=== PATIENT | female | born 1965 | race Caucasian/White ===

== ENCOUNTER 2016-06-28 07:58 | Day surgery (SDC) | payer MEDICARE, OTHER ==
[2016-06-26 13:38] VITALS: BMI 35.0
[~2016-06-28 07:58] MED LIST: DEXAMETHASONE SOD PHOSPHATE 10 MG/ML 1 ML VIAL IV ONE; HEPARIN SODIUM,PORCINE 5,000 UNIT/ML 1 ML VIAL SQ ONE; LACTATED RINGERS 1,000 ML IV SCH; ONDANSETRON 4 MG/2 ML VIAL IVP ONE; Pre Op ABX Message 1 EACH MISC MISCELLANE ONE
--- NOTE | 2016-06-28 08:09 | P.GSHP ---
History of Present Illness H&P Date: 06/28/16 Chief Complaint: Abnormal left mammogram This a 50-year-old female for from Dr. Ed Martinez. Patient recent mammography. She is found to have suspicious constipation left breast. She presents today for left breast needle localized biopsy. - Constitutional Constitutional: Reports as per HPI Past Medical History Past Medical History: COPD, GERD/Reflux, Hypertension Additional Past Medical History / Comment(s): COPD (NO INHALERS). ABN. MAMMOGRAM History of Any Multi-Drug Resistant Organisms: None Reported Past Surgical History: Hysterectomy Additional Past Surgical History / Comment(s): COLONOSCOPY Past Anesthesia/Blood Transfusion Reactions: No Reported Reaction Past Psychological History: No Psychological Hx Reported Smoking Status: Former smoker Past Alcohol Use History: None Reported Additional Past Alcohol Use History / Comment(s): QUIT 2014. SMOKED 1 & 1/2 PPD FOR 10 YEARS. Past Drug Use History: None Reported - Past Family History Father Family Medical History: Cancer, Deep Vein Thrombosis (DVT) Additional Family Medical History / Comment(s): LUNG CANCER Mother Family Medical History: Deep Vein Thrombosis (DVT) Sister(s) Family Medical History: Pulmonary Embolus Medications and Allergies Home Medications Medication Instructions Recorded Confirmed Type Metoprolol Tartrate [Lopressor] 50 mg PO DAILY 04/05/14 06/26/16 History Ibuprofen [Motrin] 200 - 400 mg PO Q6HR PRN 07/07/15 06/26/16 History Ranitidine HCl [Zantac] 150 mg PO BID PRN 07/07/15 06/26/16 History Allergies Allergy/AdvReac Type Severity Reaction Status Date / Time No Known Allergies Allergy Verified 06/26/16 13:34 Surgical - Exam - General well developed, no distress - Eyes PERRL - ENT normal pinna - Neck no masses - Respiratory normal expansion - Cardiovascular Rhythm: regular - Abdomen Abdomen: soft, non tender Breasts exam is within normal limits Assessment and Plan Plan: Abnormal left mammogram. We'll perform left breast biopsy with needle localization.
[2016-06-28] MEDS ORDERED: LIDOCAINE 1% 20 ML VIAL (10MG/ML) FOR IV START INTRADERMA ONE (09:00)
[2016-06-28] MEDS ORDERED: ALPRAZolam 0.5 MG TAB PO ONE (09:10)
[2016-06-28] MEDS ORDERED: LIDOCAINE 1% INJ 10MG/ML (20 ML MDV) SQ ONE ×2 (09:55→10:10)
[2016-06-28] MEDS ORDERED: SODIUM BICARB 4% 5 ML VIAL (0.48 MEQ/ML) MISCELLANE ONE ×2 (09:55→10:10)
[2016-06-28] MEDS ORDERED: MIDAZOLAM 2 MG/2 ML VIAL IV ONE (11:06)
[2016-06-28] MEDS ORDERED: LABETALOL 5 MG/ML VIAL MDV ONE (11:24)
[2016-06-28] MEDS ORDERED: SUCCINYLCHOLINE CHLORIDE 100 MG/5 ML SYR IV ONE (11:24)
[2016-06-28] MEDS ORDERED: PROPOFOL 10 MG/ML 20 ML VIAL IV ONE (11:24)
[2016-06-28] MEDS ORDERED: MIDAZOLAM 2 MG/2 ML VIAL ONE (11:24)
[2016-06-28] MEDS ORDERED: fentaNYL (PF) 50 MCG/ML 2 ML AMP ONE (11:24)
[2016-06-28] MEDS ORDERED: LIDOCAINE 1% INJ 10MG/ML (20 ML MDV) ONE (11:24)
[2016-06-28] MEDS ORDERED: BUPIVACAIN-EPI 0.25%-1:200,000 30 ML VIAL SQ ONE (11:54)
[2016-06-28] MEDS ORDERED: SODIUM CHLORIDE 0.9% 50 ML with ceFAZolin 2,000 MG IV ONE ×2 (11:57)
[2016-06-28] MEDS ORDERED: LACTATED RINGERS 1,000 ML IV ONE (12:18)
--- NOTE | 2016-06-28 12:23 | P.OP ---
Date of Procedure: 06/28/16 Preoperative Diagnosis: Abnormal left mammogram Postoperative Diagnosis: Defer to pathology Procedure(s) Performed: Left breast biopsy with ultrasound-guided needle localization Anesthesia: DIVYAA Surgeon: Cesar Sheridan Estimated Blood Loss (ml): 5 Pathology: other (Left breast biopsy) Condition: stable Disposition: PACU Description of Procedure: The patient's placed on the operative table in supine position. She received general anesthesia. Her left breast was prepped and draped usual fashion. The wire was positioned at the 4 o'clock position near the inframammary crease. A skin incision was made at the wire site and then using sharp dissection electrocautery and the Harmonic scissors a core tissue around the wire was removed. The bellies hemostasis. The skin was closed interrupted 3-0 Monocryl suture. Dermabond was applied. The specimen was sent to mammography and the lesion was confirmed within the specimen. Patient top procedure well and recovered so condition.
[2016-06-28 12:58] VITALS: TEMP 97
[2016-06-28] MEDS: HYDROmorphone 1 MG/ML 1 ML SYRINGE IVP PRN ×2 (13:00→13:19)
[2016-06-28 13:05] VITALS: RESP 16
--- NOTE | 2016-06-28 13:57 | MM ---
EXAMINATION TYPE: MG pre op needle loc LT DATE OF EXAM: 06/28/2016 11:04 AM COMPARISON: NONE CLINICAL HISTORY: Microcalcifications left breast TECHNIQUE: Needle localization with wire placement and surgical excision of area of concern in the left breast. FINDINGS: The procedure of needle localization with wire placement and than surgical excision was explained to the patient. Benefits, alternatives, and risks were discussed. An informed consent was then obtained. The overlying skin was prepped and draped in usual sterile fashion. Lidocaine buffered with bicarbonate was used as anesthetic into the skin and subcutaneous tissue up to the level of area of concern. The shortest pathway for procedure was chosen initially from below. Given far posterior positioning and patient body habitus the calcifications were not visible utilizing this approach despite multiple attempts. Multiple attempts were then made at a lateral approach with the calcifications being near the chest wall and far posterior. Lateral approach proved successful is a 9 cm needle was placed into the region followed by deployment of guidewire. Subsequent 90 degrees mammogram show the needle to be in satisfactory position relative to the targeted area. At this point, wire was placed and the needle was withdrawn. The wire was fixed to patient's skin. Images were marked for surgeon. The patient tolerated the procedure well without any immediate complication. The patient was kept in the radiology department for short stay after the procedure and then taken to surgery for surgical excision. Targeted calcifications and wire are identified in specimen mammogram. The patient was kept in hospital for short stay after the procedure and then discharged home in stable condition. IMPRESSION: Successful, uncomplicated needle localization with wire placement and surgical excision of suspicious group of calcifications in the left breast, full pathology results to follow. Pathology Results: Benign BREAST, LEFT, IMAGE GUIDED LOCALIZATION AND RESECTION: FIBROCYSTIC CHANGE ( STROMAL FIBROSIS, CYST FORMATION, APOCRINE METAPLASIA, ADENOSIS, COLUMNAR CELL CHANGE AND DUCT HYPERPLASIA). Recommendation Follow up left breast mammogram in 6 months. HESHAM
[2016-06-28 14:24] VITALS: BP 133/71; PULSE 69
--- NOTE | 2016-07-06 11:13 | MM ---
MG Surgical Specimen LT EXAMINATION TYPE: MG pre op needle loc LT DATE OF EXAM: 06/28/2016 11:04 AM COMPARISON: NONE CLINICAL HISTORY: Microcalcifications left breast TECHNIQUE: Needle localization with wire placement and surgical excision of area of concern in the left breast. FINDINGS: The procedure of needle localization with wire placement and than surgical excision was explained to the patient. Benefits, alternatives, and risks were discussed. An informed consent was then obtained. The overlying skin was prepped and draped in usual sterile fashion. Lidocaine buffered with bicarbonate was used as anesthetic into the skin and subcutaneous tissue up to the level of area of concern. The shortest pathway for procedure was chosen initially from below. Given far posterior positioning and patient body habitus the calcifications were not visible utilizing this approach despite multiple attempts. Multiple attempts were then made at a lateral approach with the calcifications being near the chest wall and far posterior. Lateral approach proved successful is a 9 cm needle was placed into the region followed by deployment of guidewire. Subsequent 90 degrees mammogram show the needle to be in satisfactory position relative to the targeted area. At this point, wire was placed and the needle was withdrawn. The wire was fixed to patient's skin. Images were marked for surgeon. The patient tolerated the procedure well without any immediate complication. The patient was kept in the radiology department for short stay after the procedure and then taken to surgery for surgical excision. Targeted calcifications and wire are identified in specimen mammogram. The patient was kept in hospital for short stay after the procedure and then discharged home in stable condition. IMPRESSION: Successful, uncomplicated needle localization with wire placement and surgical excision of suspicious group of calcifications in the left breast, full pathology results to follow. RECOMMENDATION: Follow-up diagnostic mammogram of the left breast in 6 months. HESHAM
== END 2016-06-28 14:38 | disposition home or self-care (01) ==
LOC: OR 07:58
PROVIDERS: ATTEND Surgery
DX: N60.12 Diffuse cystic mastopathy of left breast (principal); N60.82 Other benign mammary dysplasias of left breast; N60.22 Fibroadenosis of left breast; N60.92 Unspecified benign mammary dysplasia of left breast; R92.8 Other abnormal and inconclusive findings on diagnostic imaging of breast; R92.0 Mammographic microcalcification found on diagnostic imaging of breast; R92.1 Mammographic calcification found on diagnostic imaging of breast; K21.9 Gastro-esophageal reflux disease without esophagitis; I10 Essential (primary) hypertension; J44.9 Chronic obstructive pulmonary disease, unspecified; Z79.1 Long term (current) use of non-steroidal anti-inflammatories (NSAID); Z79.899 Other long term (current) drug therapy; Z87.891 Personal history of nicotine dependence
CPT/HCPCS: 88307; 76098; 19281; 19125; J2250; J1644; J1100; J2405; J2001; J3010; J1170; J0690; J0330; J2704

== ENCOUNTER → 2017-09-26 | Outpatient (CLI) | payer MEDICARE, OTHER | END | disposition home or self-care (01) | LOC: LABWHC1 13:02 | PROVIDERS: ATTEND Family Medicine | DX: R27.0 Ataxia, unspecified (principal) | CPT/HCPCS: 36415; 82565 ==

== ENCOUNTER → 2017-09-27 | Outpatient (CLI) | payer MEDICARE, OTHER ==
--- NOTE | 2017-09-27 07:39 | MR ---
EXAMINATION TYPE: MR brain wo con DATE OF EXAM: 09/27/2017 COMPARISON: CT brain February 28, 2012 HISTORY: Ataxia per order. Shaking per patient. TECHNIQUE: Multiplanar, multisequence imaging of the brain and brainstem is performed without IV cont rast. FINDINGS: Diffusion weighted images demonstrate no evidence of a recent infarct or other diffusion abnormality. There is no extraaxial fluid collection or significant white matter signal abnormality. The ventricu lar system and cisternal spaces are normal in size and appearance. The brain volume is age appropria te. Midline structures demonstrate normal morphology. The craniocervical junction appears within normal limits. Normal vascular flow voids are present. The visualized sinuses are clear and the globes are i ntact. Nasal septum remains deviated to right of midline. IMPRESSION: No significant findings are seen to account for patient's symptoms.
== END | disposition home or self-care (01) ==
LOC: RADMRIMAIN 06:16
PROVIDERS: ATTEND Family Medicine
DX: R27.0 Ataxia, unspecified (principal)
CPT/HCPCS: 70551

== ENCOUNTER → 2018-01-14 | Outpatient (CLI) | payer MEDICARE, OTHER ==
--- NOTE | 2018-01-14 13:56 | XR ---
EXAMINATION TYPE: XR chest 2V DATE OF EXAM: 01/14/2018 COMPARISON: No recent for comparison. HISTORY: Cough for 2 weeks with COPD. TECHNIQUE: Frontal and lateral views of the chest are obtained. FINDINGS: There is prominent interstitial lung markings throughout. There is no focal air space opac ity, pleural effusion, or pneumothorax seen. The cardiac silhouette size is within normal limits. The osseous structures are intact. Surgical clips are seen within the left breast soft tissues. IMPRESSION: Diffuse interstitial prominence that can be seen in atypical pneumonitis, bronchitis or mild pulmonary vascular congestion.
== END | disposition home or self-care (01) ==
LOC: RADXRMAIN 12:55
PROVIDERS: ATTEND Family Medicine
DX: R91.8 Other nonspecific abnormal finding of lung field (principal); J44.9 Chronic obstructive pulmonary disease, unspecified
CPT/HCPCS: 71046

== ENCOUNTER → 2018-04-28 | Outpatient (CLI) | payer MEDICARE, OTHER ==
[2018-04-28 16:43] LABS: Basophils # (A) 0.1 k/uL (0-0.2); Basophils % (A) 1 %; Eosinophils # (A) 0.1 k/uL (0-0.7); Eosinophils % (A) 1 %; HCT 53.6 % (34.0-46.0); HGB 17.4 gm/dL (11.4-16.0); Lymphocytes # (A) 3.3 k/uL (1.0-4.8); Lymphocytes % (A) 33 %; MCHC 32.5 g/dL (31.0-37.0); MCV 92.3 fL (80.0-100.0); Mean Platelet Volume 10.4; Monocytes # (A) 0.6 k/uL (0-1.0); Monocytes % (A) 6 %; Neutrophils # (A) 5.7 k/uL (1.3-7.7); Neutrophils % (A) 57 %; Platelet Count 193 k/uL (150-450); RDW 13.8 % (11.5-15.5); WBC 10.1 k/uL (3.8-10.6)
[2018-04-28 16:48] LABS: ALT 29 U/L (9-52); AST 21 U/L (14-36); Albumin 4.5 g/dL (3.5-5.0); Alkaline Phosphatase 80 U/L (38-126); Anion Gap 11 mmol/L; Blood Urea Nitrogen 24 mg/dL (7-17); Calcium 10.5 mg/dL (8.4-10.2); Carbon Dioxide 28 mmol/L (22-30); Chloride 100 mmol/L (98-107); Glucose 106 mg/dL (74-99); Potassium 4.2 mmol/L (3.5-5.1); Sodium 139 mmol/L (137-145); Total Bilirubin 0.6 mg/dL (0.2-1.3)
[2018-04-28 17:04] LABS: T4, Free (Free Thyroxine) 0.83 ng/dL (0.78-2.19)
[2018-04-28 17:08] LABS: Anisocytosis (M) Present; Large Platelets Present
[2018-04-29 03:45] LABS: Hemoglobin A1C 5.9 % (4.0-6.0)
--- NOTE | 2018-04-29 10:49 | ECHOF ---
Referral Reason:I10 hypertension MEASUREMENTS -------- HEIGHT: 160.0 cm WEIGHT: 87.1 kg BP: RVIDd: 1.9 cm (< 3.3) IVSd: 1.7 cm (0.6 - 1.1) LVIDd: 4.1 cm (3.9 - 5.3) LVPWd: 1.3 cm (0.6 - 1.1) IVSs: 1.9 cm LVIDs: 2.9 cm LVPWs: 1.6 cm LAESV Index (A-L): 15.14 ml/m Ao Diam: 3.2 cm (2.0 - 3.7) AV Cusp: 1.5 cm (1.5 - 2.6) LA Diam: 2.2 cm (2.7 - 3.8) MV EXCURSION: 16.095 mm (> 18.000) MV EF SLOPE: 43 mm/s (70 - 150) EPSS: 0.6 cm MV E Christiano: 0.62 m/s MV DecT: 268 ms MV A Christiano: 0.92 m/s MV E/A Ratio: 0.68 RAP: 5.00 mmHg RVSP: 13.29 mmHg FINDINGS -------- Sinus rhythm. This was a technically adequate study. The left ventricular size is normal. Overall left ventricular systolic function is low-normal with, an EF between 50 - 55 %. Moderate asymmetric septal hypertrophy with septal thickness 1.6 - 1.9 cm . The right ventricle is normal in size and function. Normal LA size by volume 22+/-6 ml/m2. The right atrium is normal in size. There is mild aortic valve sclerosis. There is no evidence of aortic regurgitation. There is no e vidence of aortic stenosis. The mitral valve leaflets are mildly thickened. Mild mitral annular calcification present. There is trace to mild mitral regurgitation. Trace tricuspid regurgitation present. Right ventricular systolic pressure is normal at < 35 mmHg. There is no evidence of pulmonary hypertension. Trace/mild (physiologic) pulmonic regurgitation. The aortic root size is normal. Normal inferior vena cava with normal inspiratory collapse consistent with estimated right atrial pre ssure of 5 mmHg. There is no pericardial effusion. CONCLUSIONS -------- 1. Sinus rhythm. 2. This was a technically adequate study. 3. The left ventricular size is normal. 4. Overall left ventricular systolic function is low-normal with, an EF between 50 - 55 %. 5. Moderate asymmetric septal hypertrophy with septal thickness 1.6 - 1.9 cm. 6. Normal LA size by volume 22+/-6 ml/m2. 7. There is mild aortic valve sclerosis. 8. The mitral valve leaflets are mildly thickened. 9. Mild mitral annular calcification present. 10. There is trace to mild mitral regurgitation. 11. Trace tricuspid regurgitation present. 12. Right ventricular systolic pressure is normal at < 35 mmHg. 13. There is no evidence of pulmonary hypertension. 14. Trace/mild (physiologic) pulmonic regurgitation. 15. The aortic root size is normal. 16. There is no pericardial effusion. BEAUTY DIRECTOR: Raad Eckert RDCS
== END | disposition home or self-care (01) ==
LOC: RADECHMAIN 15:00
PROVIDERS: ATTEND Family Medicine
DX: I34.0 Nonrheumatic mitral (valve) insufficiency (principal); I35.8 Other nonrheumatic aortic valve disorders; I37.1 Nonrheumatic pulmonary valve insufficiency; E11.9 Type 2 diabetes mellitus without complications; I11.9 Hypertensive heart disease without heart failure
CPT/HCPCS: 80053; 83036; 84439; 84443; 85025; 93306

== ENCOUNTER → 2018-05-20 | Outpatient (CLI) | payer MEDICARE, OTHER ==
--- NOTE | 2018-05-21 06:22 | US ---
EXAMINATION TYPE: US thyroid st tissue head/neck DATE OF EXAM: 05/20/2018 COMPARISON: NONE CLINICAL HISTORY: E83.52 Hypercalcemia; soreness with swallowing GLAND SIZE: Right Lobe: 5.5 x 2.5 x 2.6 cm Overall Parenchyma: heterogenous Left Lobe: 6.7 x 3.1 x 2.8 cm Overall Parenchyma: heterogeneous Isthmus Thickness: 1.5 cm NODULES RIGHT: # of nodules measured on right: 2 largest of multiple 1. 2.1 X 1.8 x 1.7 cm hypoechoic mixed nodule at the upper pole with well-defined margins. This no dule is wider than tall and shows intranodular vascularity. 2. 1.5 X 1.0 x 0.7 cm hypoechoic mixed nodule at the mid medial pole with well-defined margins. Thi s nodule is wider than tall and shows intranodular vascularity. Right Parathyroid Gland: subtle hypoechoic oval nodule noted inferior to right thyroid = 1.1 x 0.9 x 0.7cm. LEFT: # of nodules measured on left: one largest of multiple 1. 4.1 X 2.8 x 1.6 cm hypoechoic mixed nodule at the mid pole with poorly defined margins. This no dule is wider than tall and shows intranodular vascularity. ISTHMUS: # of nodules measured in the isthmus: 1 consolidated area measured 1. 2.8 X 2.5 x 1.0 cm hypoechoic solid nodule at the mid pole with well-defined margins. This nodu le is wider than tall and shows no intranodular vascularity. Bilateral neck scanned, no evidence of lymphadenopathy. There is markedly heterogeneous enlarged thyroid gland with multiple thyroid nodules identified as de tailed above. In addition on image 32 there is suspicion for posterior inferior extrathyroid 1.1 x 0. 7 x 0.9 cm hypoechoic mass. IMPRESSION: Findings consistent with multinodular thyroid goiter are seen. Correlate clinically. Suspicion for in ferior right parathyroid adenoma. Consider nuclear medicine correlation.
== END | disposition home or self-care (01) ==
LOC: RADUSWWP 14:25
PROVIDERS: ATTEND Family Medicine
DX: E83.52 Hypercalcemia (principal)
CPT/HCPCS: 76536

== ENCOUNTER → 2018-05-22 | Outpatient (CLI) | payer MEDICARE, OTHER | END | disposition home or self-care (01) | LOC: LABWHC1 10:55 | PROVIDERS: ATTEND Family Medicine | DX: D50.9 Iron deficiency anemia, unspecified (principal) | CPT/HCPCS: 36415; 82330; 83970 ==

== ENCOUNTER → 2018-06-23 | Outpatient (CLI) | payer MEDICARE, OTHER ==
[2018-06-23 10:49] LABS: Ionized Calcium 5.1 mg/dL (4.5-5.3)
[2018-06-23 11:29] LABS: T4, Free (Free Thyroxine) 0.89 ng/dL (0.78-2.19)
--- NOTE | 2018-06-23 16:10 | NM ---
EXAMINATION TYPE: NM parathyroid w/spect DATE OF EXAM: 06/23/2018 COMPARISON: NONE HISTORY: Abnormal blood tests TECHNIQUE: Following administration of 23.5 mCi Tc99m Sestamibi. Anterior projection images of the neck and ches t were obtained 10 minutes and 3 hours post injection. SPECT images of the neck and chest were obtai bryan and reconstructed in three axes. FINDINGS: Thyroid tracer washout: Delayed images demonstrate near-complete tracer washout from the thyroid. Parathyroid uptake: None. The two-hour delayed images do not demonstrate any focal abnormal persisten t uptake in the region of the parathyroid glands to suggest parathyroid adenoma. IMPRESSION: Normal parathyroid imaging study. No evidence for mediastinal uptake to suggest mediastinal parathyro id adenoma
[2018-06-23 16:49] LABS: Parathyroid Hormone Intact 72.7 pg/mL (14.0-72.0)
== END | disposition home or self-care (01) ==
LOC: RADNMMAIN 11:33
PROVIDERS: ATTEND Family Medicine
DX: R94.6 Abnormal results of thyroid function studies (principal); I10 Essential (primary) hypertension; B89 Unspecified parasitic disease; Z79.899 Other long term (current) drug therapy
CPT/HCPCS: 84439; 84481; 82330; 84443; 86800; 83970; 78071; 36415; A9500

== ENCOUNTER → 2018-09-16 | Outpatient (CLI) | payer MEDICARE ==
--- NOTE | 2018-09-16 10:22 | CT ---
EXAMINATION TYPE: CT shoulder RT w con DATE OF EXAM: 09/16/2018 COMPARISON: Radiograph 319 HISTORY: 53-year-old female Right shoulder and elbow pain TECHNIQUE: Contiguous axial scanning of the right shoulder performed with IV Contrast, patient inject ed with 100 ml mL of Isovue 300. Coronal/sagittal reconstructions performed. CT DLP: 473 mGycm Automated exposure control for dose reduction was used. FINDINGS: Lobulated enlargement of the thyroid gland. Dedicated thyroid ultrasound can further evaluate. Mild degenerative joint space narrowing with mild marginal spurring and capsular hypertrophy at the a cromioclavicular joint. Subacromial space is preserved. No atrophy of the rotator cuff musculature loss of the subacromial sp fly. No tendinous or bursal calcifications. No acute fracture, subluxation, or dislocation seen. There is mild anterior acromial spurring noted. Some calcific granuloma centrally in the right perihilar region and mild centrilobular emphysema. IMPRESSION: 1. MILD AC JOINT OA AND BONY SPURRING ALONG THE ANTERIOR ACROMION COULD RESULT IN IMPINGEMENT SYMPTOM S. 2. NO ACUTE OSSEOUS ABNORMALITY SEEN. PRESERVED MUSCLE BULK OF THE ROTATOR CUFF. 3. LOBULATED AND BULKY APPEARANCE TO THE THYROID GLAND. FINDINGS MAY REFLECT GOITER. DEDICATED THYROI D ULTRASOUND CAN ASSESS FOR UNDERLYING NODULES. 4. PRIOR GRANULOMATOUS DISEASE AND COPD.
== END | disposition home or self-care (01) ==
LOC: RADCTMAIN 06:38
PROVIDERS: ATTEND Family Medicine
DX: M19.011 Primary osteoarthritis, right shoulder (principal); D71 Functional disorders of polymorphonuclear neutrophils; J44.9 Chronic obstructive pulmonary disease, unspecified
CPT/HCPCS: 73201; Q9967

== ENCOUNTER 2019-04-09 14:11 | Observation (INO) | payer MEDICARE ==
[2019-04-09] MEDS ORDERED: HYDROcodone/APAP 7.5-325MG 1 EACH TAB PO PRN (16:43)
[2019-04-09] MEDS ORDERED: FAMOTIDINE 20 MG TAB PO PRN (16:43)
[2019-04-09] MEDS ORDERED: ALPRAZolam 0.5 MG TAB PO PRN (16:54)
[2019-04-09 16:58] LABS: Basophils # (A) 0.1 k/uL (0-0.2); Basophils % (A) 1 %; Eosinophils # (A) 0.1 k/uL (0-0.7); Eosinophils % (A) 1 %; HCT 48.2 % (34.0-46.0); Lymphocytes # (A) 2.4 k/uL (1.0-4.8); Lymphocytes % (A) 30 %; MCH 30.8 pg (25.0-35.0); MCHC 33.2 g/dL (31.0-37.0); MCV 92.8 fL (80.0-100.0); Mean Platelet Volume 12.7; Monocytes # (A) 0.4 k/uL (0-1.0); Monocytes % (A) 5 %; Neutrophils # (A) 4.6 k/uL (1.3-7.7); Neutrophils % (A) 59 %; Platelet Count 156 k/uL (150-450); WBC 7.8 k/uL (3.8-10.6)
[2019-04-09] MEDS: methylPREDNISolone SOD SUCCI 40 MG/ML 1 ML VIAL IV SCH ×2 (17:00→23:17)
[2019-04-09] MEDS: SODIUM CHLORIDE 0.9% 1,000 ML IV SCH (17:00)
[2019-04-09 17:09] LABS: ALT 19 U/L (4-34); AST 22 U/L (14-36); African American GFR (CKD) >90 (>60 ml/min/1.73 sqM); Albumin 4.1 g/dL (3.5-5.0); Alkaline Phosphatase 91 U/L (38-126); Anion Gap 6 mmol/L; Blood Urea Nitrogen 15 mg/dL (7-17); Calcium 9.5 mg/dL (8.4-10.2); Carbon Dioxide 30 mmol/L (22-30); Chloride 103 mmol/L (98-107); Glucose 105 mg/dL (74-99); Non-African American GFR(CKD) >90 (>60 ml/min/1.73 sqM); Potassium 4.5 mmol/L (3.5-5.1); Sodium 139 mmol/L (137-145); Total Bilirubin 0.4 mg/dL (0.2-1.3); Total Protein 7.1 g/dL (6.3-8.2)
[2019-04-09] MEDS ORDERED: HYDROcodone/APAP 10-325MG 1 EACH TAB PO PRN (17:21)
[2019-04-09] MEDS ORDERED: ALPRAZolam 0.25 MG TAB PO PRN (17:22)
--- NOTE | 2019-04-09 18:04 | XR ---
EXAMINATION: XR chest 2V DATE AND TIME: 04/09/2019 5:38 PM CLINICAL INDICATION: PHH; copd TECHNIQUE: Frontal and lateral views COMPARISON: 01/14/2018 FINDINGS: The lungs are clear. The pleural spaces are negative. The cardiac silhouette is not enlarged, and the remainder of the mediastinal silhouette is unremarkab le. The skeletal structures and soft tissues are negative for acute findings. Surgical clips noted over the left breast shadow, also seen on the prior study. IMPRESSION: NO ACUTE PROCESS.
[2019-04-09] MEDS: AZITHROMYCIN 500 MG in SODIUM CHLORIDE 0.9% 250 ML IVPB SCH (18:21)
[2019-04-10] MEDS: methylPREDNISolone SOD SUCCI 40 MG/ML 1 ML VIAL IV SCH ×3 (08:12→23:22)
[2019-04-10] MEDS: LOSARTAN 50 MG TAB PO SCH (08:14)
[2019-04-10] MEDS ORDERED: METOPROLOL TARTRATE 50 MG TAB PO SCH (09:00)
[2019-04-10] MEDS ORDERED: amLODIPine 5 MG TAB PO SCH (09:00)
[2019-04-10] MEDS: SODIUM CHLORIDE 0.9% 1,000 ML IV SCH (09:33)
[2019-04-10] MEDS ORDERED: amLODIPine 5 MG TAB PO STA (10:18)
--- NOTE | 2019-04-10 11:07 | ECHOF ---
Referral Reason:cad MEASUREMENTS -------- HEIGHT: 162.6 cm WEIGHT: 89.8 kg BP: RVIDd: 3.2 cm (< 3.3) IVSd: 1.6 cm (0.6 - 1.1) LVIDd: 4.5 cm (3.9 - 5.3) LVPWd: 1.5 cm (0.6 - 1.1) IVSs: 2.0 cm LVIDs: 3.3 cm LVPWs: 2.0 cm LAESV Index (A-L): 17.29 ml/m Ao Diam: 3.2 cm (2.0 - 3.7) AV Cusp: 2.1 cm (1.5 - 2.6) LA Diam: 3.2 cm (2.7 - 3.8) MV EXCURSION: 19.848 mm (> 18.000) MV EF SLOPE: 48 mm/s (70 - 150) EPSS: 0.7 cm MV E Christiano: 1.15 m/s MV DecT: 137 ms MV A Christiano: 0.44 m/s MV E/A Ratio: 2.59 RAP: 5.00 mmHg RVSP: 26.79 mmHg FINDINGS -------- Sinus rhythm. This was a technically difficult study with suboptimal apical views. The left ventricular size is normal. There is severe concentric left ventricular hypertrophy. Ove rall left ventricular systolic function is normal with, an EF between 55 - 60 %. Restrictive LV fi lling pattern, consistent with elevated LA pressure 20.80.r/o infiltrative cardiomyopathy. The right ventricle is normal in size. Normal LA size by volume 22+/-6 ml/m2. The right atrial size is normal. 5.0mg of Lumason was utilized for enhancement of images Interatrial and interventricular septum intact. The aortic valve was not well visualized. There is no evidence of aortic regurgitation. There is no evidence of aortic stenosis. There is trace mitral regurgitation. Mild tricuspid regurgitation present. There is no evidence of pulmonary hypertension. The right v entricular systolic pressure, as measured by Doppler, is 26.79mmHg. The pulmonic valve was not well visualized. There is no pulmonic regurgitation present. The aortic root size is normal. IVC Not well visulized. There is no pericardial effusion. CONCLUSIONS -------- 1. Sinus rhythm. 2. This was a technically difficult study with suboptimal apical views. 3. The left ventricular size is normal. 4. There is severe concentric left ventricular hypertrophy. 5. Overall left ventricular systolic function is normal with, an EF between 55 - 60 %. 6. Restrictive LV filling pattern, consistent with elevated LA pressure 20.80. 7. The right ventricle is normal in size. 8. Normal LA size by volume 22+/-6 ml/m2. 9. The right atrial size is normal. 10. 5.0mg of Lumason was utilized for enhancement of images 11. Interatrial and interventricular septum intact. 12. The aortic valve was not well visualized. 13. There is no evidence of aortic regurgitation. 14. There is no evidence of aortic stenosis. 15. There is trace mitral regurgitation. 16. Mild tricuspid regurgitation present. 17. There is no evidence of pulmonary hypertension. 18. The right ventricular systolic pressure, as measured by Doppler, is 26.79mmHg. 19. The pulmonic valve was not well visualized. 20. There is no pulmonic regurgitation present. 21. The aortic root size is normal. 22. IVC Not well visulized. 23. There is no pericardial effusion. REPLENISHMENT ASSOCIATE: Maryan Bell RDCS
[2019-04-10] MEDS ORDERED: CARVEDILOL 12.5 MG TAB PO SCH (12:15)
--- NOTE | 2019-04-10 12:20 | P.CRDCN ---
History of Present Illness History of present illness: HISTORY OF PRESENTING ILLNESS This is a pleasant 53-year-old female past medical history significant for COPD, hypertension, gastroesophageal reflux disease and chronic nicotine de pendence. Denies prior history of coronary artery disease and does not follow with a clinic md associate for any reason. We have been asked to see in consultation for abnormal EKG. She was sent in as a direct admit from her primary care physician secondary to shortness of breath and abnormal EKG. EKG obtained on admission reveals sinus mechanism with heart rate of 61 T-wave inversions noted in the inferior anterior lateral leads. There is no old EKG for comparison however she did have a stress test in [address]-T wave changes in the resting EKG. Echocardiogram obtained reveals preserved LV systolic function with ejection fraction 55-60%, elevated left atrial pressure a nd mild tricuspid regurgitation and no wall motion abnormalities. She states she has chronic shortness of breath secondary to COPD and has noticed no change in her breathing recently. He has been overall stable and labored with exertion. She denies symptoms of chest discomfort although she does describe having frequent bouts of burning in her chest. She states this burning is relieved by [id number]-ddy-[id number] remedies however does return shortly thereafter. She is seen and examined resting heart was sitting up in bed in no acute distress. Laboratory data reviewed, WBC 7.8, hemoglobin 16, platelets 156, d- dimer 0.41, sodium 139, potassium 4.5, creatinine 0.61, cardiac enzymes negative 3. Current daily cardiac medications include amlodipine 5 mg daily and losartan 100 mg daily. REVIEW OF SYSTEMS At the time of my exam: CONSTITUTIONAL: Denies fever or chills. CARDIOVASCULAR: Denies chest pain, shortness of breath, orthopnea, PND or palpitations. RESPIRATORY: Denies cough. GASTROINTESTINAL: Denies abdominal pain, diarrhea, constipation, nausea or vomiting. MUSCULOSKELETAL: Denies myalgias. NEUROLOGIC: Denies numbness, tingling or weakness. ENDOCRINE: Denies fatigue, weight change, polydipsia or polyurina. GENITOURINARY: Denies burning, hematuria or urgency with micturation. HEMATOLOGIC: Denies history of anemia or bleeding. PHYSICAL EXAMINATION Blood pressure 210/77 heart rate 77 afebrile and maintaining oxygen saturation on room air. CONSTITUTIONAL: No apparent distress. HEENT: Head is normocephalic. Pupils are equal, round. Sclerae anicteric. Mucous membranes of the mouth are moist. No JVD. No carotid bruit. CHEST EXAMINATION: Lungs are clear to auscultation. No chest wall tenderness is noted on palpation or with deep breathing. Diminished bilaterally. HEART EXAMINATION: Regular rate and rhythm. S1, S2 heard. Systolic ejection murmur at the left sternal border, no gallops or rub. ABDOMEN: Soft, nontender. Positive bowel sounds. EXTREMITIES: 2+ peripheral pulses, no lower extremity edema and no calf tenderness. NEUROLOGIC EXAMINATION: Patient is awake, alert and oriented x3. ASSESSMENT Hypertensive emergency Left ventricular hypertrophy with restrictive LV filling pattern and elevated left atrial pressure COPD Chronic nicotine dependence PLAN Increase amlodipine to 10 mg daily. Initiate Coreg 12.5 mg twice a day and [place] 25 mg daily. Will require further outpatient evaluation with a cardiac MRI to assess for restrictive cardiomyopathy. Smoking cessation recommended. Can increase coreg as needed if her heart rate will tolerate. We will continue to follow and make recommendations accordingly. Thank you kindly for this consultation. Nurse Practitioner note has been reviewed, I agree with a documented findings and plan of care. Patient was seen and examined. Past Medical History Past Medical History: COPD, GERD/Reflux, Hypertension Additional Past Medical History / Comment(s): COPD (NO INHALERS). ABN. MAMMOGRAM, biopsy negative History of Any Multi-Drug Resistant Organisms: None Reported Past Surgical History: Hysterectomy Additional Past Surgical History / Comment(s): COLONOSCOPY Past Anesthesia/Blood Transfusion Reactions: No Reported Reaction Smoking Status: Former smoker - Past Family History Father Family Medical History: Cancer, Deep Vein Thrombosis (DVT) Additional Family Medical History / Comment(s): LUNG CANCER Mother Family Medical History: Deep Vein Thrombosis (DVT) Sister(s) Family Medical History: Pulmonary Embolus Medications and Allergies Home Medications Medication Instructions Recorded Confirmed Type Ranitidine HCl [Zantac] 150 mg PO BID 07/07/15 04/09/19 History Losartan Potassium [Cozaar] 100 mg PO DAILY 06/28/16 04/09/19 History ALPRAZolam [Xanax] 0.25 mg PO DAILY 04/09/19 04/09/19 History HYDROcodone/APAP 10-325MG [[place] 1 tab PO BID PRN 04/09/19 04/09/19 History 10-325] amLODIPine [Norvasc] 5 mg PO DAILY 04/09/19 04/09/19 History Allergies Allergy/AdvReac Type Severity Reaction Status Date / Time No Known Allergies Allergy Verified 04/09/19 17:10 Physical Exam Vitals: Vital Signs Temp Pulse Resp BP Pulse Ox 04/10/19 11:19 77 20 210/77 93 L 04/10/19 08:38 97.6 F 80 13 217/80 04/10/19 07:00 97.5 F L 74 16 216/78 94 L 04/10/19 01:12 97.5 F L 71 12 175/86 93 L 04/09/19 19:14 98.1 F 75 12 182/84 92 L 04/09/19 15:00 97.5 F L 79 16 183/80 95 Intake and Output 04/09/19 04/10/19 04/10/19 22:59 06:59 14:59 Intake Total 225 240 Balance 225 240 Intake: Intake, IV Titration 225 Amount Sodium Chloride 0.9% 1, 225 000 ml @ 75 mls/hr IV . [id number] [facility] Rx#:[id number] Oral 240 Other: Voiding Method Toilet # Voids 1 3 Weight 90 kg Results 04/09/19 16:26 04/09/19 16:26 Cardiac Enzymes 04/09/19 04/09/19 04/09/19 Range/Units 16:26 16:26 22:19 AST 22 (14-36) U/L Troponin I <0.012 <0.012 (0.000-0.034) ng/mL 04/10/19 Range/Units 05:50 AST (14-36) U/L Troponin I <0.012 (0.000-0.034) ng/mL CBC 04/09/19 Range/Units 16:26 WBC 7.8 (3.8-10.6) k/uL RBC 5.20 (3.80-5.40) m/uL Hgb 16.0 (11.4-16.0) gm/dL Hct 48.2 H (34.0-46.0) % Plt Count 156 (150-450) k/uL Comprehensive Metabolic Panel 04/09/19 Range/Units 16:26 Sodium 139 (137-145) mmol/L Potassium 4.5 (3.5-5.1) mmol/L Chloride 103 (98-107) mmol/L Carbon Dioxide 30 (22-30) mmol/L BUN 15 (7-17) mg/dL Creatinine 0.61 (0.52-1.04) mg/dL Glucose 105 H (74-99) mg/dL Calcium 9.5 (8.4-10.2) mg/dL AST 22 (14-36) U/L ALT 19 (4-34) U/L Alkaline Phosphatase 91 (38-126) U/L Total Protein 7.1 (6.3-8.2) g/dL Albumin 4.1 (3.5-5.0) g/dL Current Medications Generic Name Dose Route Start Last Admin Trade Name Freq PRN Reason Stop Dose Admin Hydrocodone Bitart/Acetaminophen 1 each 04/09/19 17:21 [place] 10 PO Q12H PRN Pain Alprazolam 0.25 mg 04/09/19 17:22 Xanax PO DAILY PRN Anxiety Amlodipine Besylate 10 mg 04/11/19 09:00 Norvasc PO DAILY TAMARA Famotidine 20 mg 04/09/19 16:43 Pepcid PO BID PRN Heartburn Ceftriaxone Sodium 1 gm/ 50 mls @ 100 mls/hr 04/09/19 17:00 04/10/19 08:13 Sodium Chloride IVPB 100 mls/hr Q24HR TAMARA Administration Azithromycin 500 mg/ Sodium 250 mls @ 250 mls/hr 04/09/19 18:00 04/09/19 18:21 Chloride IVPB 250 mls/hr Q24H TAMARA Administration Sodium Chloride 1,000 mls @ 75 mls/hr 04/09/19 16:45 04/10/19 09:33 Saline 0.9% IV Not Given .[id number] TAMARA Losartan Potassium 100 mg 04/10/19 09:00 04/10/19 08:14 Cozaar PO 100 mg DAILY TAMARA Administration Methylprednisolone Sodium Succinate 40 mg 04/09/19 17:00 04/10/19 08:12 Solu-Medrol IV 40 mg Q8HR TAMARA Administration Intake and Output 04/09/19 04/10/19 04/10/19 22:59 06:59 14:59 Intake Total 225 240 Balance 225 240 Intake: Intake, IV Titration 225 Amount Sodium Chloride 0.9% 1, 225 000 ml @ 75 mls/hr IV . [id number] [facility] Rx#:[id number] Oral 240 Other: Voiding Method Toilet # Voids 1 3 Weight 90 kg Patient Weight 04/11/19 06:59 Weight 90 kg 04/09/19 16:26 04/09/19 16:26
[2019-04-10] MEDS: CHLORTHALIDONE 25 MG TAB PO SCH (13:51)
--- NOTE | 2019-04-10 14:14 | HP ---
HISTORY AND PHYSICAL A 53-year-old white female, history of COPD, hypertension, GERD, nicotine addiction, and coronary artery disease was admitted with cough, congestion, shortness of breath with tracheobronchitis versus pneumonia and COPD exacerbation. She has had a severely abnormal EKG at the time she was admitted. She has some ischemia and T-wave inversion in multiple leads. She was started on IV antibiotics, IV steroids, and Cardiology was consulted. She had a negative D-dimer. IV steroids and IV antibiotics have been started. 14-POINT REVIEW OF SYSTEM: Exertional shortness of breath and chest pain with exertion, cough, congestion, shortness of breath, lightheaded, dizziness. Otherwise, 14 point review of systems negative. PHYSICAL EXAMINATION: Blood pressure is 210/77 on admission with heart rate in the 70s, respiratory 25-30. CARDIOVASCULAR: Scattered S1, S2. Tachycardic. LUNGS: Show scattered rhonchi and wheeze. HEMATOLOGY: Negative Homans, 2+ edema. HEART: S1, S2. ABDOMEN: Soft, nontender. ASSESSMENT: COPD exacerbation, tracheobronchitis, acute hypoxemic respiratory distress secondary to above, exertional unstable angina with atypical chest pain, hypertension acceleration. The blood pressure will need to be controlled, IV treatments for COPD exacerbation and IV antibiotics her infection. Continue current treatment. Will follow up with Cardiology in the office. History of nicotine addiction, quit smoking. FAMILY HISTORY: Mother with DVTs, history of pulmonary embolism. HOME MEDICINES: See list. Zantac, Cozaar, Xanax, [place], Norvasc. ALLERGIES: Negative. Continue current treatment. MMODL / IJN: [id number] /
[2019-04-10] MEDS ORDERED: RX INFO: IV CONTRAST WAS GIVEN 1 EACH MISC MISCELLANE PRN (14:45)
[2019-04-10] MEDS: AZITHROMYCIN 500 MG in SODIUM CHLORIDE 0.9% 250 ML IVPB SCH (17:27)
[2019-04-10] MEDS: CARVEDILOL 12.5 MG TAB PO SCH (17:59)
--- NOTE | 2019-04-10 18:16 | CT ---
EXAMINATION TYPE: CT chest w con DATE OF EXAM: 04/10/2019 COMPARISON: None HISTORY: COPD CT DLP: 521.1 mGycm Automated exposure control for dose reduction was used. CONTRAST: Performed with IV Contrast, patient injected with 100 mL of Isovue 300. Multiple axial sections were obtained from the diaphragm to the thoracic inlet with intravenous contr ast. The lungs are clear of infiltrate. There is no evidence of a pulmonary mass. There is no pleural effu camryn. There is no mediastinal adenopathy. There are no hilar masses. Heart size is normal. There is n o pericardial effusion. Upper abdominal soft tissues are intact. Thyroid gland is enlarged. There is no evidence of aortic an eurysm. The bony thorax is intact. IMPRESSION: Negative CT scan of the chest. There is a mild goiter.
--- NOTE | 2019-04-11 07:13 | PN ---
PROGRESS NOTE A 53-year-old white female, hypertension itself with a normal EKG. Blood pressure is up to 220. CARDIOVASCULAR: S1-S. LUNGS: Scattered wheeze and rhonchi x4. Cardiology consult reviewed. PSYCH: Fair mood and affect. ASSESSMENT: 1. Hypertension acceleration. 2. Chronic obstructive pulmonary disease exacerbation. Will do a CT of the chest with contrast. We are going to control hypertension. Coreg has been increased to 25 b.i.d., Norvasc to 10 daily, and spironolactone has been increased. Follow up in the next 24-48 hours for possible discharge if CT of the chest is clear and Cardiology clears her. MMODL / IJN: [id number] /
[2019-04-11] MEDS: methylPREDNISolone SOD SUCCI 40 MG/ML 1 ML VIAL IV SCH (08:36)
[2019-04-11] MEDS: LOSARTAN 50 MG TAB PO SCH (08:37)
[2019-04-11] MEDS: CHLORTHALIDONE 25 MG TAB PO SCH (08:37)
[2019-04-11] MEDS: CARVEDILOL 12.5 MG TAB PO SCH (08:37)
[2019-04-11 08:42] VITALS: PULSE 78; RESP 18; TEMP 98
[2019-04-11] MEDS ORDERED: amLODIPine 10 MG TAB PO SCH (09:00)
[2019-04-11 09:29] VITALS: BP 180/74
[2019-04-11] MEDS ORDERED: AZITHROMYCIN 500 MG TAB PO SCH (18:00)
== END 2019-04-11 10:16 | disposition left against medical advice (07) ==
LOC: INTOOBSV 14:19 → UNDOADMIN 14:19 → 4SSUR 14:19 → UNDODISIN 04-11 10:16
PROVIDERS: ADMIT Family Medicine; ATTEND Family Medicine
DX: J44.1 Chronic obstructive pulmonary disease with (acute) exacerbation (principal); I25.110 Atherosclerotic heart disease of native coronary artery with unstable angina pectoris; I16.1 Hypertensive emergency; E11.9 Type 2 diabetes mellitus without complications; K21.9 Gastro-esophageal reflux disease without esophagitis; I07.1 Rheumatic tricuspid insufficiency; Z71.6 Tobacco abuse counseling; Z90.710 Acquired absence of both cervix and uterus; Z98.890 Other specified postprocedural states; Z83.2 Family history of diseases of the blood and blood-forming organs and certain disorders involving the immune mechanism; Z80.1 Family history of malignant neoplasm of trachea, bronchus and lung; F17.200 Nicotine dependence, unspecified, uncomplicated; Z79.891 Long term (current) use of opiate analgesic; Z79.899 Other long term (current) drug therapy
CPT/HCPCS: 96376 ×3; 96361 ×2; 96365; 96366 ×2; 96367; 96375; 93005; 85379; 80053; 83605; 84484 ×2; 85025; 71046; 71260; G0379; G0378 ×3; C8929; J2920 ×3; J0456 ×2; J0696 ×3; Q9950; Q9967; 93306

== ENCOUNTER → 2019-11-16 | Outpatient (CLI) | payer MEDICARE ==
[2019-11-16 08:41] LABS: HCT 48.7 % (34.0-46.0); HGB 16.1 gm/dL (11.4-16.0); MCH 30.7 pg (25.0-35.0); MCHC 33.1 g/dL (31.0-37.0); MCV 92.8 fL (80.0-100.0); Mean Platelet Volume 11.6; Platelet Count 175 k/uL (150-450); RBC 5.24 m/uL (3.80-5.40); RDW 13.3 % (11.5-15.5); WBC 9.9 k/uL (3.8-10.6)
[2019-11-16 18:08] LABS: African American GFR (CKD) 114.6 (60.0-200.0); Anion Gap 4.3 mmol/L (4.00-12.00); BUN/Creat Ratio 24.29 Ratio (12.00-20.00); Calcium 9.5 mg/dL (8.7-10.3); Carbon Dioxide 30.7 mmol/L (21.6-31.8); Chol/HDL Ratio 5.29; LDL Cholesterol,Calculated 99.4 mg/dL (0.0-131.0); Non-African American GFR(CKD) 98.9 (60.0-200.0); Potassium 4.6 mmol/L (3.5-5.5); VLDL Calculation 76.6 mg/dL (5.00-40.00)
== END | disposition home or self-care (01) ==
LOC: LABWHC1 07:54
PROVIDERS: ATTEND Internal Medicine
DX: R07.9 Chest pain, unspecified (principal); R06.00 Dyspnea, unspecified; R53.83 Other fatigue
CPT/HCPCS: 36415; 80048; 80061; 83880; 85027

== ENCOUNTER → 2019-12-21 | Outpatient (CLI) | payer MEDICARE ==
--- NOTE | 2019-12-21 11:49 | US ---
EXAMINATION TYPE: US renal artery duplex complet DATE OF EXAM: 12/21/2019 COMPARISON: US 2010 CLINICAL HISTORY: I10 HTN. Uncontrolled HTN x 11 years per patient; smoker x 20 years; HT 5'4 and WT 200.0lbs (central abdomen greatest distribution). MEASUREMENTS: RENAL SIZE: Rt Kidney: 10.0 x 7.1 x 5.1cm Lt Kidney: 10.7 x 5.9 x 6.2cm RESISTANCE INDEX Right: 0.7 Left: 0.7 RA/AO RATIO (< 3.5 ) Right: 2.1 Left: 1.4 RA VELOCITY ( < 180 cm/s) Right: 192.7cm/s and recheck with 173.5 cm/s PSV recorded in stenotic color flow at distal right brianna l artery. Right renal artery is poorly seen throughout. Monophasic signal is noted proximal right michael al artery. Left: 131.6 cm/s noted distally in stenotic color flow. Aorta: ectatic appearance is noted throughout with intimal wall thickening observed proximal and mid aorta. Aorta size is wnl. Abnormally Elevated PSV is noted in bilateral Renal Artery. Color Flow perfusion in left kidney is mo re prominent than in right kidney. Bilateral Renal US: no hydronephrosis or masses seen IMPRESSION: 1. Ratios are within normal limits, however, there are elevated velocities within the renal arteries bilaterally as discussed above. Recommend follow-up MRA of the renal arteries for further evaluation.
[2019-12-21 12:25] LABS: African American GFR (CKD) >90 (>60 ml/min/1.73 sqM); Albumin 4.5 g/dL (3.5-5.0); Anion Gap 7 mmol/L; Blood Urea Nitrogen 27 mg/dL (7-17); Calcium 9.8 mg/dL (8.4-10.2); Carbon Dioxide 31 mmol/L (22-30); Chloride 102 mmol/L (98-107); Glucose 120 mg/dL (74-99); Non-African American GFR(CKD) >90 (>60 ml/min/1.73 sqM); Phosphorus 5.2 mg/dL (2.5-4.5); Potassium 4.9 mmol/L (3.5-5.1); Sodium 140 mmol/L (137-145)
[2019-12-25 19:40] LABS: Normetanephrine, Free 244 pg/mL (< OR = 148); Total, Free (MN + NMN) 244 pg/mL (< OR = 205)
== END | disposition home or self-care (01) ==
LOC: RADUSWWP 09:36
PROVIDERS: ATTEND Internal Medicine
DX: I70.1 Atherosclerosis of renal artery (principal); I10 Essential (primary) hypertension
CPT/HCPCS: 36415; 80069; 82088; 82533; 82634; 83498; 83835; 84244; 84443; 93975

== ENCOUNTER → 2020-01-29 | Outpatient (CLI) | payer MEDICARE ==
--- NOTE | 2020-01-29 10:05 | MR ---
EXAMINATION TYPE: MR angio renal wo/w con DATE OF EXAM: 01/29/2020 COMPARISON: Ultrasound 12/21/2019 HISTORY: Abnormal US CONTRAST: Standard multiplanar, multisequence MRI departmental protocol utilizing 9 mL intravenous Gadavist prasanna olinium contrast. FINDINGS: There is no hydronephrosis. No renal solid or cystic mass seen. Adrenal glands have a normal morpholo gy. Liver and spleen homogeneous. Pancreas has a normal appearance. Bowel gas pattern nonspecific. Ao rta of normal caliber. There appear to be a single renal artery on the right which is widely patent. There is accessory brianna l artery on the left with no evidence of significant hemodynamic stenosis. Atherosclerotic change of the iliac vasculature noted. IMPRESSION: No evidence of renal artery stenosis.
== END | disposition home or self-care (01) ==
LOC: RADMRIMAIN 08:01
PROVIDERS: ATTEND Family Medicine
DX: R93.41 Abnormal radiologic findings on diagnostic imaging of renal pelvis, ureter, or bladder (principal)
CPT/HCPCS: C8902; A9585; 74185

== ENCOUNTER → 2021-06-30 | Outpatient (CLI) | payer MEDICARE ==
[2021-06-30 18:37] LABS: Basophils # (A) 0.02 X 10*3/uL (0.00-0.10); Basophils % (A) 0.2 %; Eosinophils # (A) 0.09 X 10*3/uL (0.04-0.35); HCT 51.8 % (37.2-46.3); HGB 16.9 g/dL (12.0-15.0); Immature Grans, Automated 0.4 %; Lymphocytes # (A) 2.65 X 10*3/uL (0.90-5.00); Lymphocytes % (A) 28.1 %; MCH 30.7 pg (27.0-32.0); MCHC 32.6 g/dL (32.0-37.0); MCV 94.2 fL (80.0-97.0); Monocytes # (A) 0.62 X 10*3/uL (0.20-1.00); Monocytes % (A) 6.6 %; NRBC Per 100 WBC 0 /100 WBCS (0.0-0.0); Neutrophils % (A) 63.7 %; Platelet Count 164 X 10*3/uL (140-440); RDW 13.3 % (11.5-14.5); WBC 9.42 X 10*3/uL (4.50-10.00)
[2021-06-30 18:46] LABS: ALT 14 U/L (8-44); AST 16 U/L (13-35); African American GFR (CKD) 120.8 (60.0-200.0); Albumin 4.3 g/dL (3.8-4.9); Alkaline Phosphatase 89 U/L (41-126); BUN/Creat Ratio 27.05 Ratio (12.00-20.00); Blood Urea Nitrogen 15.8 mg/dL (9.0-27.0); Calcium 9.4 mg/dL (8.7-10.3); Carbon Dioxide 22.6 mmol/L (20.0-27.5); Chloride 103 mmol/L (96-109); Chol/HDL Ratio 6.67 Ratio; Globulin 3.3 g/dL (1.6-3.3); Glucose 106 mg/dL (70-110); LDL Cholesterol,Calculated 143.6 mg/dL (0.0-131.0); Non-African American GFR(CKD) 104.3 (60.0-200.0); Potassium 4.4 mmol/L (3.5-5.5); Sodium 139 mmol/L (135-145); Total Protein 7.6 g/dL (6.2-8.2)
== END | disposition home or self-care (01) ==
LOC: LABWHC1 10:29
PROVIDERS: ATTEND Family Medicine
DX: Z00.00 Encounter for general adult medical examination without abnormal findings (principal); I10 Essential (primary) hypertension; Z79.899 Other long term (current) drug therapy
CPT/HCPCS: 36415; 80053; 80061; 83036; 84443; 85025

== ENCOUNTER → 2021-07-05 | Outpatient (CLI) | payer MEDICARE ==
[~2021-07-05] MED LIST changes: -DEXAMETHASONE SOD PHOSPHATE 10 MG/ML 1 ML VIAL IV ONE; -HEPARIN SODIUM,PORCINE 5,000 UNIT/ML 1 ML VIAL SQ ONE; -LACTATED RINGERS 1,000 ML IV SCH; -ONDANSETRON 4 MG/2 ML VIAL IVP ONE; -Pre Op ABX Message 1 EACH MISC MISCELLANE ONE; +REGADENOSON 0.4 MG/5 ML SYRINGE IV PRN
--- NOTE | 2021-07-05 10:21 | NM ---
EXAMINATION TYPE: NM myocardial SPECT single DATE OF EXAM: 07/05/2021 COMPARISON: Previous exam 01/30/2016 HISTORY: R 94.31 Following administration of 10.1 mCi Tc 99m Sestamibi. Images obtained 60 minutes post injection. FINDINGS: Only the rest portion of the exam was performed due to patient's blood pressure. Decreased uptake is noted along the inferior apical left ventricle on rest images, some mild decreased uptake a lso noted along the anterior wall extending towards the septum. Calculated ejection fraction is 50% IMPRESSION: Difficult to exclude prior myocardial infarct, normal cardiac ejection fraction on rest imaging. Fitz morel exam.
== END | disposition home or self-care (01) ==
LOC: RADNMMAIN 07:56
PROVIDERS: ATTEND Family Medicine
DX: R94.31 Abnormal electrocardiogram [ECG] [EKG] (principal)
CPT/HCPCS: 78451; A9500

== ENCOUNTER → 2021-07-06 | Day surgery (SDC) | payer MEDICARE ==
--- NOTE | 2021-07-07 08:02 | CA ---
Transthoracic Echo Report Name: Lorenza Chan Age: 55 Gender: F : 1965 Exam Date: 07/06/2021 16:02 Exam Location: [facility] Ht (in): 64 Wt (lb): 194 Ordering Physician: Ed Martinez MD Attending/Referring Phys: Finishing Area Operator Maryan Bell RDCS Procedure CPT: Indications: R94.31 Cardiac Hx: Technical Quality: Contrast 1: Total Dose (mL): Contrast 2: Total Dose (mL): MEASUREMENTS (Male / Female) Normal Values 2D ECHO LV Diastolic Diameter PLAX 4.6 cm 4.2 - 5.9 / 3.9 - 5.3 cm LV Systolic Diameter PLAX 2.7 cm IVS Diastolic Thickness 1.5 cm 0.6 - 1.0 / 0.6 - 0.9 cm LVPW Diastolic Thickness 1.6 cm 0.6 - 1.0 / 0.6 - 0.9 cm LV Relative Wall Thickness 0.7 RV Internal Dim ED PLAX 3.2 cm LA Volume 45.9 cm 18 - 58 / 22 - 52 cm M-MODE Aortic Root Diameter MM 3.1 cm LA Systolic Diameter MM 4.2 cm LA Ao Ratio MM 1.4 AV Cusp Separation MM 1.7 cm DOPPLER AV Peak Velocity 153.2 cm/s AV Peak Gradient 9.4 mmHg LVOT Peak Velocity 110.5 cm/s LVOT Peak Gradient 4.9 mmHg MV Area PHT 3.1 cm Mitral E Point Velocity 144.4 cm/s Mitral A Point Velocity 50.2 cm/s Mitral E to A Ratio 2.9 MV Deceleration Time 248.1 ms TR Peak Velocity 205.5 cm/s TR Peak Gradient 16.9 mmHg Right Ventricular Systolic Press 21.9 mmHg FINDINGS Left Ventricle Moderately increased septal wall thickness. Moderately increased posterior wall thickness. Left ventricular ejection fraction is estimated at 55-60 %. No obvious regional wall motion abnormalities. Right Ventricle The right ventricle is normal in size and function. Right Atrium The right atrium is normal in size. Left Atrium The left atrium is normal in size. Mitral Valve Structurally normal mitral valve without significant stenosis or prolapse. Trace to mild mitral regurgitation. Aortic Valve Structurally normal aortic valve without significant sclerosis or stenosis. There is no aortic regurgitation. Tricuspid Valve Structurally normal tricuspid valve without significant stenosis. Mild tricuspid regurgitation. Pulmonary artery systolic pressure is normal. Pulmonic Valve Structurally normal pulmonic valve without significant stenosis. Trace pulmonic regurgitation. Pericardium Normal pericardium without effusion. Aorta Normal aortic root dimension. CONCLUSIONS #1. Moderate concentric left ventricle hypertrophy with preserved LV function. #2. Mild mitral regurgitation #3. Normal chamber sizes. #4. Mild tricuspid regurgitation. #5. No pericardial effusion Previewed by: Dr. Tereza Mckeon MD (Electronically Signed) Final Date: 07 July 2021 08:01
== END ==
LOC: RADECHMAIN 15:55
PROVIDERS: ATTEND Family Medicine
DX: R94.31 Abnormal electrocardiogram [ECG] [EKG] (principal); I08.1 Rheumatic disorders of both mitral and tricuspid valves
CPT/HCPCS: 93306

== ENCOUNTER 2021-07-12 12:35 | Day surgery (SDC) | payer MEDICARE ==
[2021-07-11 08:51] VITALS: BMI 33.1
[~2021-07-12 12:35] MED LIST changes: +DEXAMETHASONE SOD PHOSPHATE 4 MG/ML 1 ML VIAL IV ONE; +HYDROmorphone 0.5 MG/0.5 ML SYRINGE IVP PRN; +LACTATED RINGERS 1,000 ML IV SCH; +LIDOCAINE 1% (10MG/ML) FOR IV START INTRADERMA PRN; +ONDANSETRON 4 MG/2 ML VIAL IVP ONE; -REGADENOSON 0.4 MG/5 ML SYRINGE IV PRN; +metroNIDAZOLE-NS PMX 500 MG in SALINE 1 100ML.BAG IVPB PRN
[2021-07-12] MEDS ORDERED: PROPOFOL 10 MG/ML 20 ML VIAL IV ONE (15:11)
[2021-07-12] MEDS ORDERED: MIDAZOLAM 2 MG/2 ML VIAL ONE (15:11)
[2021-07-12] MEDS ORDERED: ePHEDrine 50 MG/ML 1 ML VIAL ONE (15:11)
[2021-07-12] MEDS ORDERED: LIDOCAINE 2% INJ 20 MG/ML (2 ML VIAL) ONE (15:11)
[2021-07-12] MEDS ORDERED: fentaNYL (PF) 50 MCG/ML 2 ML AMP ONE (15:11)
[2021-07-12] MEDS ORDERED: SUCCINYLCHOLINE CHLORIDE 100 MG/5 ML SYR IV ONE (15:11)
[2021-07-12] MEDS ORDERED: LIDOCAINE 2%-EPI 1:100,000 20 ML VIAL SUBMUCOSAL ONE ×2 (15:12)
[2021-07-12] MEDS ORDERED: GELATIN SPONGE,ABSORB (SMALL) 1 EACH SPONGE TOPICAL ONE (15:12)
[2021-07-12 16:11] VITALS: TEMP 97.3
[2021-07-12] MEDS ORDERED: LABETALOL SYRINGE 5 MG/ML IVP ONE (17:03)
[2021-07-12] MEDS ORDERED: SODIUM CHLORIDE 0.9% 1,000 ML IV ONE ×2 (17:04→17:12)
[2021-07-12 17:16] VITALS: PULSE 75; RESP 18
[2021-07-12 17:33] VITALS: BP 136/70
--- NOTE | 2021-07-12 19:07 | OP ---
OPERATIVE REPORT DATE OF PROCEDURE: 07/12/2021 PREOPERATIVE DIAGNOSIS: 1. Carious teeth. 2. Abscessed teeth. 3. Non-restorable teeth. POSTOPERATIVE DIAGNOSIS: 1. Carious teeth. 2. Abscessed teeth. 3. Non-restorable teeth. PROCEDURE: Surgical extraction of all remaining maxillary and mandibular teeth except tooth #17. SURGEON: Dr. Marina. ANESTHESIA: General via oral endotracheal intubation. ESTIMATED BLOOD LOSS: 1 mL. FLUIDS: Crystalloid. DRAINS: None. COMPLICATIONS: None. SPECIMENS: None. INDICATIONS FOR PROCEDURE: The patient is a 55-year-old female who presented for evaluation of acute dental pain and chronic infected teeth. Following examination clinically and radiographically, it was decided that the teeth were in disrepair and they would be removed in preparation for complete dentures. The risks, benefits and alternatives of the procedure were reviewed with the patient at length and all of her questions answered to her satisfaction. PROCEDURE DESCRIPTION: The patient was taken to the operating room and placed on the operating table in the supine position. Next the patient was induced via the IV route and was then intubated orally. A general plane of anesthesia was then maintained throughout the operative course. The surgeon then approached the operative field and the patient was prepped and draped in the usual manner for this procedure. Next, 7 mL of 2% lidocaine with 1:100,000 parts epinephrine was infiltrated into the maxilla and a right and left inferior alveolar nerve block, buccal block, lingual block was administered. Next a throat pack was placed, notifying both Nursing and Anesthesia. Attention was then directed to the lower right quadrant, where an nrfccqmc-lyu-zgmwrqi technique was utilized to deliver the teeth. Teeth numbers 2, 3, 4, 5, 6, 7, 8, 9, 10, 11, 12, 13, 14, 15, 16, 18, 19, 20, 21, 22, 27, 28, 29 and 32 were removed. The wounds were irrigated thoroughly and hemostasis was observed. The patient tolerated the procedure well without complications. The throat pack was then removed, notifying both Nursing and Anesthesia. The patient was then transferred to the post-anesthetic care unit, breathing spontaneously and hemodynamically stable. MMODL / IJN: [id number] /
== END 2021-07-12 17:44 | disposition home or self-care (01) ==
LOC: OR 12:35
PROVIDERS: ATTEND Dentist Oral and Maxillofacial Surgery
DX: K02.52 Dental caries on pit and fissure surface penetrating into dentin (principal); K04.7 Periapical abscess without sinus; F17.210 Nicotine dependence, cigarettes, uncomplicated; I10 Essential (primary) hypertension; J44.9 Chronic obstructive pulmonary disease, unspecified; E66.9 Obesity, unspecified; E78.5 Hyperlipidemia, unspecified; E11.9 Type 2 diabetes mellitus without complications; F41.9 Anxiety disorder, unspecified; F32.A Depression, unspecified; M19.90 Unspecified osteoarthritis, unspecified site; Z68.33 Body mass index [BMI] 33.0-33.9, adult; Z79.899 Other long term (current) drug therapy; Z98.890 Other specified postprocedural states; Z90.710 Acquired absence of both cervix and uterus
CPT/HCPCS: 41899; J2250; J1100; J0690; J2405; J3010; J0330; J2704; J2001

== ENCOUNTER → 2021-11-28 | Outpatient (CLI) | payer MEDICARE ==
--- NOTE | 2021-11-28 14:19 | CTL ---
Addendum: The following should be included in the impression. As noted in the body of the report thyroid is enlarged correlate for thyromegaly or thyroiditis.
== END | disposition home or self-care (01) ==
LOC: RADCTMAIN 12:55
PROVIDERS: ATTEND Family Medicine
DX: Z12.2 Encounter for screening for malignant neoplasm of respiratory organs (principal); Z87.891 Personal history of nicotine dependence
CPT/HCPCS: 71271

== ENCOUNTER → 2021-12-08 | Outpatient (CLI) | payer MEDICARE ==
[2021-12-08 14:54] LABS: T4, Free (Free Thyroxine) 0.86 ng/dL (0.800-1.800)
== END | disposition home or self-care (01) ==
LOC: LABWHC1 10:27
PROVIDERS: ATTEND Family Medicine
DX: I10 Essential (primary) hypertension (principal)
CPT/HCPCS: 36415; 84439; 84443; 84481

== ENCOUNTER → 2022-01-09 | Outpatient (CLI) | payer MEDICARE | END | disposition home or self-care (01) | LOC: RADNMMAIN 08:10 | PROVIDERS: ATTEND Family Medicine | DX: Z53.9 Procedure and treatment not carried out, unspecified reason (principal) ==

== ENCOUNTER → 2022-02-07 | Outpatient (CLI) | payer MEDICARE ==
--- NOTE | 2022-02-07 16:05 | MM ---
Reason for Exam: Screening (asymptomatic). Last mammogram was performed 4 year(s) and 11 month(s) ago. Patient History: Menarche at age 14. First Full-Term at age 19. Hysterectomy at age 23. Postmenopausal. 06/28/2016, Benign Core Biopsy on the left side. Maternal cousin had breast cancer. Maternal cousin had breast cancer. Risk Values: [place] 5 year model risk: 1.0%. NCI Lifetime model risk: 7.0%. Prior Study Comparison: 03/01/2016 Bilateral Screening Mammogram, [facility] WITH [facility]. 03/08/2016 Left Diagnostic Mammogram, [facility] WITH [facility]. 02/22/2017 Bilateral Diagnostic Mammogram, [facility] WITH [facility]. Tissue Density: The breast tissue is heterogeneously dense. This may lower the sensitivity of mammography. Findings: Analyzed By CAD. Left breast demonstrates grouped calcifications in the upper outer quadrant approximately 11 cm from the nipple. Right breast demonstrates no suspicious group of microcalcifications or new suspicious mass in either breast. Overall Assessment: Incomplete: need additional imaging evaluation, BI-RAD 0 Management: Diagnostic Mammogram of the left breast. A clinical breast exam by your physician is recommended on an annual basis and results should be correlated with mammographic findings. [facility] will attempt to contact patient to return for supplemental views and ultrasound if indicated. Electronically signed and approved by: Rohan Hendricks DO
== END | disposition home or self-care (01) ==
LOC: RADMAMWWP 08:47
PROVIDERS: ATTEND Family Medicine
DX: Z12.31 Encounter for screening mammogram for malignant neoplasm of breast (principal); Z78.0 Asymptomatic menopausal state; Z80.3 Family history of malignant neoplasm of breast
CPT/HCPCS: 77063; 77067

== ENCOUNTER → 2022-02-14 | Outpatient (CLI) | payer MEDICARE ==
--- NOTE | 2022-02-14 13:00 | MM ---
Reason for Exam: Additional evaluation requested from abnormal screening. Last screening mammogram was performed less than 1 month ago. Patient History: Menarche at age 14. First Full-Term at age 19. Hysterectomy at age 23. Postmenopausal. 06/28/2016, Benign Core Biopsy on the left side. Maternal cousin had breast cancer. Maternal cousin had breast cancer. Risk Values: [place] 5 year model risk: 1.0%. NCI Lifetime model risk: 7.0%. Prior Study Comparison: 03/08/2016 Left Diagnostic Mammogram, [facility]. 02/22/2017 Bilateral Diagnostic Mammogram, [facility]. 02/07/2022 Bilateral MG 3D screening mammo w/cad, [facility]. Tissue Density: Left: The breast tissue is heterogeneously dense. This may lower the sensitivity of mammography. Findings: Analyzed By CAD. Scattered benign-appearing calcifications are noted. Precautionary six-month follow-up is advised. Overall Assessment: Probably benign, BI-RAD 3 Management: Diagnostic Mammogram of the left breast in 6 months. A clinical breast exam by your physician is recommended on an annual basis and results should be correlated with mammographic findings. This exam should not preclude additional follow-up of suspicious palpable abnormalities. Results were given to the patient verbally at the time of exam. Electronically signed and approved by: Juan Santoro M.D. Radiologis
== END | disposition home or self-care (01) ==
LOC: RADMAMWWP 12:24
PROVIDERS: ATTEND Family Medicine
DX: R92.8 Other abnormal and inconclusive findings on diagnostic imaging of breast (principal); Z78.0 Asymptomatic menopausal state; Z80.3 Family history of malignant neoplasm of breast; Z98.890 Other specified postprocedural states
CPT/HCPCS: 77065; G0279; 77061

== ENCOUNTER → 2022-09-28 | Outpatient (CLI) | payer OTHER ==
--- NOTE | 2022-09-28 18:27 | US ---
EXAMINATION TYPE: US thyroid st tissue head/neck DATE OF EXAM: 09/28/2022 COMPARISON: US dated 05/30/2018 CLINICAL INDICATION: Female, 57 years old with history of E04.9 NONTOXIC GOITER, UNSPECIFIED; GLAND SIZE: Right Lobe: 5.2 x 2.8 x 1.9 cm Overall Parenchyma: Very heterogenous Left Lobe: 5.9 x 3.2 x 1.7 cm Overall Parenchyma: Very heterogenous Isthmus Thickness: 1.3 cm NODULES RIGHT: # of nodules measured on right: 1 1. 1.8 X 1.8 x 1.7 cm, upper mid, solid or almost completely solid, hypoechoic nodule, which is wid er than tall, with smooth margins, without echogenic foci. Prior size: 2.1 x 1.7 x 1.8 cm LEFT: # of nodules measured on left: 0 [employer] notes:Gland is diffusely enlarged and heterogeneous, unable to distinguish individual n odules. There is no normal tissue identified. ISTHMUS: # of nodules measured in the isthmus: 0 Bilateral neck scanned, no evidence of lymphadenopathy. [employer] notes: Grossly enlarged and heterogeneous gland bilaterally, difficult to discern individ ual nodules. IMPRESSION: Severe, diffuse nodular heterogeneity and thyromegaly. Consider goiter. The degree of heterogeneity a n nodularity makes it difficult to discern discrete nodules. The previous 2.1 cm TR4 nodule at [facility] upper pole is measured at 1.8 cm currently.
== END | disposition home or self-care (01) ==
LOC: RADUSWWP 15:44
PROVIDERS: ATTEND Family Medicine
DX: E04.2 Nontoxic multinodular goiter (principal)
CPT/HCPCS: 76536

== ENCOUNTER → 2023-02-12 | Outpatient (CLI) | payer OTHER ==
--- NOTE | 2023-02-12 19:37 | MM ---
Reason for Exam: Additional evaluation requested from prior study. Last screening mammogram was performed 12 month(s) ago. Patient History: Menarche at age 14. First Full-Term at age 19. Hysterectomy at age 23. Postmenopausal. 06/28/2016, Benign Core Biopsy on the left side. Maternal cousin had breast cancer. Maternal cousin had breast cancer. Risk Values: Roxanne 5 year model risk: 1.0%. NCI Lifetime model risk: 6.9%. Prior Study Comparison: 03/08/2016 Left Diagnostic Mammogram, [facility]. 02/22/2017 Bilateral Diagnostic Mammogram, [facility]. 02/07/2022 Bilateral MG 3D screening mammo w/cad, [facility]. 02/14/2022 Left MG 3D work up w/cad , [facility]. Tissue Density: The breast tissue is extremely dense which could obscure a lesion on mammography. Findings: Analyzed By CAD. Pattern appears symmetrical and stable. Scattered benign punctate calcifications are present bilaterally. Surgical clips are within the posterior left breast. No significant interval changes are evident. No suspicious groups of microcalcifications, spiculated or lobular masses, architectural distortion or other secondary signs of malignancy are mammographically apparent. Overall Assessment: Benign, BI-RAD 2 Management: Screening Mammogram of both breasts in 1 year. A negative mammogram report should not preclude additional follow up of suspicious palpable abnormalities. Patient should continue monthly self breast exam. A clinical breast exam by your physician is recommended on an annual basis and results should be correlated with mammographic findings. Electronically signed and approved by: Jean Paul Bettencourt D.O. Radiologis
== END | disposition home or self-care (01) ==
LOC: RADMAMWWP 09:30
PROVIDERS: ATTEND Family Medicine
DX: R92.313 Mammographic fatty tissue density, bilateral breasts (principal); Z78.0 Asymptomatic menopausal state; Z80.3 Family history of malignant neoplasm of breast
CPT/HCPCS: 77062; 77066

== ENCOUNTER → 2023-08-14 | Outpatient (CLI) | payer MEDICARE, OTHER ==
--- NOTE | 2023-08-14 11:46 | MM ---
Reason for Exam: Follow-up at short interval from prior study. Last screening mammogram was performed 6 month(s) ago. Patient History: Menarche at age 14. First Full-Term at age 19. Hysterectomy at age 23. Postmenopausal. 06/28/2016, Benign Core Biopsy on the left side. Maternal cousin had breast cancer. Maternal cousin had breast cancer. Risk Values: Roxanne 5 year model risk: 1.1%. NCI Lifetime model risk: 6.7%. Tissue Density: The breasts are extremely dense, which lowers the sensitivity of mammography. Findings: Analyzed By CAD. The pattern is symmetrical. Prior biopsy are present. Multiple round scattered calcifications are present. These appear stable from comparison. No significant interval change is evident. No suspicious groups of microcalcifications, spiculated or lobular masses, architectural distortion or other secondary signs of malignancy are mammographically apparent. Overall Assessment: Benign, BI-RAD 2 Management: Screening Mammogram of both breasts in 6 months. A negative mammogram report should not preclude additional follow up of suspicious palpable abnormalities. Patient should continue monthly self breast exam. A clinical breast exam by your physician is recommended on an annual basis and results should be correlated with mammographic findings. Note on Roxanne scores and lifetime risk: 1. A Roxanne score greater than 3% is considered moderate risk. If this is the case, consider specialist referral to assess eligibility for a risk reducing agent. 2. If overall lifetime risk for the development of breast cancer is 20% or higher, the patient may qualify for future screening with alternating mammogram and breast MRI. Electronically signed and approved by: Jean Paul Bettencourt D.O. Radiologis
--- NOTE | 2023-08-29 10:38 | CTL ---
EXAMINATION TYPE: CT Low Dose Lung DATE OF EXAM ORDERED: 08/14/2023 HISTORY: 58-year-old female current smoker, 25 year history. Lung cancer screening CT DLP: [address] CTDI: 4.0 mGy Automated exposure control for dose reduction was used. SCREENING VISIT: Annual follow-up COMPARISON: Technical difficulties, prior exam not loading TECHNIQUE: Low dose computed tomography scan was performed through the chest at 1 mm thick sections a nd reconstructed images in multiple planes at 1 mm and [address] DIAGNOSTIC QUALITY: Satisfactory FINDINGS: Heart is normal size without pericardial effusion. Scattered mild metastatic calcifications throughout the aorta. Conventional arch vessel branching eleanor pedro. Scattered nonenlarged mediastinal lymph nodes. No thoracic lymphadenopathy by CT size criteria. Bulky enlargement of the left lobe of the thyroid gland. Follow-up thyroid ultrasound as clinically i ndicated. Without prior ultrasound from 09/28/2022. A couple benign calcified granulomas right mid lung. 4 mm anterior right midlung pulmonary nodule along the minor fissure, likely residual lymph node. Tiny 2 mm subpleural pulmonary nodule lateral left midlung, axial image 126. There is mild emphysematous change. Mild diffuse bronchial wall thickening. No consolidation or pleur al effusion. Visualized upper abdomen shows no gross abnormality. Bones: No osseous destructive process. IMPRESSION: 1. Lung-RADS 2, benign. Evidence of prior right pneumocystis disease. 2. COPD with mild emphysema. Recommend smoking cessation. 3. Bulky enlargement of the thyroid gland especially the left lobe. Please refer to recommendations o n patient's prior 09/28/[address] LUNG RAD AND CT CHEST RECOMMENDATION: Lung-Rad 2 Benign Appearance or Behavior: Continue annual sc reening with LDCT in 12 months. S Modifier (other clinically significant findings): None
== END | disposition home or self-care (01) ==
LOC: RADMAMWWP 10:40
PROVIDERS: ATTEND Family Medicine
DX: Z12.2 Encounter for screening for malignant neoplasm of respiratory organs (principal); J44.9 Chronic obstructive pulmonary disease, unspecified; E07.89 Other specified disorders of thyroid; J43.9 Emphysema, unspecified; N60.02 Solitary cyst of left breast; N60.01 Solitary cyst of right breast; R92.343 Mammographic extreme density, bilateral breasts; R92.1 Mammographic calcification found on diagnostic imaging of breast; F17.210 Nicotine dependence, cigarettes, uncomplicated; Z80.3 Family history of malignant neoplasm of breast; Z78.0 Asymptomatic menopausal state
CPT/HCPCS: 77066; 71271; G0279; 77062

== ENCOUNTER 2024-01-22 10:07 | Emergency (ER) | payer MEDICARE, OTHER ==
[2024-01-22 10:15] VITALS: TEMP 97.9
--- NOTE | 2024-01-22 10:41 | ED ---
General Adult HPI - General Chief complaint: Chest Pain Stated complaint: Chest pain Time Seen by Provider: 01/22/24 10:16 Source: patient, RN notes reviewed, old records reviewed Mode of arrival: wheelchair Limitations: no limitations - History of Present Illness Initial comments: 58-year-old female presenting with a 2-week history of central chest pain. Patient reports the pain is sharp in nature at times radiates to her back and abdomen. She has history of hypertension and is a current smoker. She denies a prior history of coronary artery disease. States the pain has been intermittent but woke her from sleep several times within the past 24 hours. No associated vomiting or diaphoresis. No fever. No cough. - Related Data Home Medications Medication Instructions Recorded Confirmed HYDROcodone/APAP 10-325MG [E[place] 1 tab PO BID 04/09/19 01/22/24 10-325] Aspirin [Adult Low Dose Aspirin EC] 81 mg PO DAILY 07/11/21 01/22/24 amLODIPine [Norvasc] 10 mg PO DAILY 07/11/21 01/22/24 ALPRAZolam [Xanax] 0.25 mg PO DAILY 01/22/24 01/22/24 Losartan/Hydrochlorothiazide 1 tab PO DAILY 01/22/24 01/22/24 [Hyzaar 100-25 Tablet] Omeprazole [PriLOSEC] 20 mg PO DAILY 01/22/24 01/22/24 Allergies Allergy/AdvReac Type Severity Reaction Status Date / Time No Known Allergies Allergy Verified 01/22/24 11:37 Review of Systems ROS Statement: Those systems with pertinent positive or pertinent negative responses have been documented in the HPI. ROS Other: All systems not noted in ROS Statement are negative. Past Medical History Past Medical History: COPD, GERD/Reflux, Hypertension Additional Past Medical History / Comment(s): COPD (NO INHALERS). ABN. MAMMOGRAM, biopsy negative History of Any Multi-Drug Resistant Organisms: None Reported Past Surgical History: Hysterectomy Additional Past Surgical History / Comment(s): COLONOSCOPY Past Anesthesia/Blood Transfusion Reactions: No Reported Reaction Past Psychological History: Anxiety Smoking Status: Current every day smoker Past Alcohol Use History: None Reported Past Drug Use History: None Reported - Past Family History Father Family Medical History: Cancer, Deep Vein Thrombosis (DVT) Additional Family Medical History / Comment(s): LUNG CANCER Mother Family Medical History: Cancer, Deep Vein Thrombosis (DVT) Additional Family Medical History / Comment(s): STOMACH CANCER Sister(s) Family Medical History: Pulmonary Embolus General Exam Limitations: no limitations General appearance: alert, in no apparent distress Head exam: Present: atraumatic, normocephalic Eye exam: Present: normal appearance, PERRL ENT exam: Present: normal exam Neck exam: Present: normal inspection. Absent: tenderness, meningismus Respiratory exam: Present: normal lung sounds bilaterally. Absent: respiratory distress, wheezes Cardiovascular Exam: Present: regular rate, normal rhythm GI/Abdominal exam: Present: soft. Absent: distended, tenderness, guarding Extremities exam: Present: normal inspection, normal capillary refill Neurological exam: Present: alert, oriented X3, CN II-XII intact. Absent: motor sensory deficit Psychiatric exam: Present: normal affect, normal mood Skin exam: Present: warm, dry, intact. Absent: cyanosis, diaphoretic Course Vital Signs 01/22/24 01/22/24 01/22/24 10:12 10:15 12:00 Temperature 97.9 F Pulse Rate 81 60 54 L Respiratory 20 20 16 Rate Blood Pressure 203/101 193/76 150/67 O2 Sat by Pulse 98 93 L Oximetry Medical Decision Making - Medical Decision Making Was pt. sent in by a medical professional or institution (PATRICE Ar[place]ga, SERVICE DESK SPECIALIST, urgent care, hospital, or jail...) When possible be specific @ -No Did you speak to anyone other than the patient for history (EMS, parent, family, police, friend...)? What history was obtained from this source @ -No Did you review nursing and triage notes (agree or disagree)? Why? @ -I reviewed and agree with nursing and triage notes Were old charts reviewed (outside hosp., previous admission, EMS record, old EKG, old radiological studies, urgent care reports/EKG's, jail records)? Report findings @ -No old charts were reviewed Differential Diagnosis (chest pain, altered mental status, abdominal pain women, abdominal pain men, vaginal bleeding, weakness, fever, dyspnea, syncope, headache, dizziness, GI bleed, back pain, seizure, CVA, palpatations, mental health, musculoskeletal)? @ -Not applicable EKG interpreted by me (3pts min.). @ -[Sinus rhythm diffuse T wave inversion and ST segment depressions similar compared to prior EKG in 2020. Ventricular rate of 69, VT interval 123, QRS duration 97, QTc 421 X-rays interpreted by me (1pt min.). @ -Chest x-ray negative for acute cardiopulmonary findings CT interpreted by me (1pt min.). @ -CT of the aorta negative for dissection, no acute findings U/S interpreted by me (1pt. min.). @ -[None done What testing was considered but not performed or refused? (CT, X-rays, U/S, labs)? Why? @ -None What meds were considered but not given or refused? Why? @ -None Did you discuss the management of the patient with other professionals (professionals i.e. , PA, SERVICE DESK SPECIALIST, lab, RT, psych nurse, social sciences lecturer, sales incentive analyst, teacher, supply officer, nurse outreach case manager)? Give summary @ -No Was smoking cessation discussed for >3mins.? @ -No Was critical care preformed (if so, how long)? @ -No Were there social determinants of health that impacted care today? How? (Homelessness, low income, unemployed, alcoholism, drug addiction, transportation, low edu. Level, literacy, decrease access to med. care, assisted, rehab)? @ -No Was there de-escalation of care discussed even if they declined (Discuss DNR or withdrawal of care, Hospice)? DNR status @ -No What co-morbidities impacted this encounter? (DM, HTN, Smoking, COPD, CAD, Cancer, CVA, ARF, Chemo, Hep., AIDS, mental health diagnosis, sleep apnea, mo rbid obesity)? @ -[Hypertension Was patient admitted / discharged? Hospital course, mention meds given and route, prescriptions, significant lab abnormalities, going to OR and other pertinent info. @ -58 yo female with 2 weeks of intermittent chest pain. Patient is hypertensive and is a current smoker. She has chest pain abdominal pain and back pain. Therefore CT angiography is ordered which is negative for aortic dissection. Her EKG is significantly abnormal but is stable from prior. She has normal CBC, normal CMP, negative troponin. I did reevaluate the patient and her blood pressure has improved. She is eager for discharge. I did discuss the possibility of admission for further cardiac workup she declines stating she has an appointment with her primary care provider. She will return if her symptoms worsen or change. Undiagnosed new problem with uncertain prognosis? @ -[No Drug Therapy requiring intensive monitoring for toxicity (Heparin, Nitro, Insulin, Cardizem)? @ -No Were any procedures done? @ -No Diagnosis/symptom? @ -Atypical chest pain Acute, or Chronic, or Acute on Chronic? @ -Default Uncomplicated (without systemic symptoms) or Complicated (systemic symptoms)? @ -Default Side effects of treatment? @ -No Exacerbation, Progression, or Severe Exacerbation? @ -No Poses a threat to life or bodily function? How? (Chest pain, [place], [place], pneumonia, PE, COPD, DKA, ARF, appy, cholecystitis, CVA, Diverticulitis, Homicidal, Suicidal, threat to staff... and all critical care pts) @ -No - Lab Data Result diagrams: 01/22/24 10:35 01/22/24 10:35 Lab Results 01/22/24 01/22/24 01/22/24 Range/Units 10:35 10:35 10:35 WBC 8.1 (3.8-10.6) k/uL RBC 5.67 H (3.80-5.40) m/uL Hgb 17.6 H (11.4-16.0) gm/dL Hct 53.3 H (34.0-46.0) % MCV 94.1 (80.0-100.0) fL MCH 31.0 (25.0-35.0) pg MCHC 32.9 (31.0-37.0) g/dL RDW 13.1 (11.5-15.5) % Plt Count 163 (150-450) k/uL MPV 11.6 Neutrophils % 68 % Lymphocytes % 23 % Monocytes % 6 % Eosinophils % 0 % Basophils % 0 % Neutrophils # 5.5 (1.3-7.7) k/uL Lymphocytes # 1.9 (1.0-4.8) k/uL Monocytes # 0.4 (0-1.0) k/uL Eosinophils # 0.0 (0-0.7) k/uL Basophils # 0.0 (0-0.2) k/uL PT 10.4 (10.0-12.5) sec INR 0.9 (<1.2) APTT 25.8 (22.0-30.0) sec Sodium 137 (137-145) mmol/L Potassium 4.3 (3.5-5.1) mmol/L Chloride 100 (98-107) mmol/L Carbon Dioxide 32 H (22-30) mmol/L Anion Gap 5 mmol/L BUN 18 H (7-17) mg/dL Creatinine 0.52 (0.52-1.04) mg/dL Est GFR (CKD-EPI)AfAm >90 (>60 ml/min/1.73 sqM) Est GFR (CKD-EPI)NonAf >90 (>60 ml/min/1.73 sqM) Glucose 123 H (74-99) mg/dL Calcium 9.6 (8.4-10.2) mg/dL Magnesium 2.3 (1.6-2.3) mg/dL Total Bilirubin 0.7 (0.2-1.3) mg/dL AST 29 (14-36) U/L ALT 41 H (4-34) U/L Alkaline Phosphatase 80 (38-126) U/L Troponin I (0.000-0.034) ng/mL Total Protein 7.8 (6.3-8.2) g/dL Albumin 4.6 (3.5-5.0) g/dL Lipase 62 (23-300) U/L 01/22/24 Range/Units 10:35 WBC (3.8-10.6) k/uL RBC (3.80-5.40) m/uL Hgb (11.4-16.0) gm/dL Hct (34.0-46.0) % MCV (80.0-100.0) fL MCH (25.0-35.0) pg MCHC (31.0-37.0) g/dL RDW (11.5-15.5) % Plt Count (150-450) k/uL MPV Neutrophils % % Lymphocytes % % Monocytes % % Eosinophils % % Basophils % % Neutrophils # (1.3-7.7) k/uL Lymphocytes # (1.0-4.8) k/uL Monocytes # (0-1.0) k/uL Eosinophils # (0-0.7) k/uL Basophils # (0-0.2) k/uL PT (10.0-12.5) sec INR (<1.2) APTT (22.0-30.0) sec Sodium (137-145) mmol/L Potassium (3.5-5.1) mmol/L Chloride (98-107) mmol/L Carbon Dioxide (22-30) mmol/L Anion Gap mmol/L BUN (7-17) mg/dL Creatinine (0.52-1.04) mg/dL Est GFR (CKD-EPI)AfAm (>60 ml/min/1.73 sqM) Est GFR (CKD-EPI)NonAf (>60 ml/min/1.73 sqM) Glucose (74-99) mg/dL Calcium (8.4-10.2) mg/dL Magnesium (1.6-2.3) mg/dL Total Bilirubin (0.2-1.3) mg/dL AST (14-36) U/L ALT (4-34) U/L Alkaline Phosphatase (38-126) U/L Troponin I <0.012 (0.000-0.034) ng/mL Total Protein (6.3-8.2) g/dL Albumin (3.5-5.0) g/dL Lipase (23-300) U/L Disposition Clinical Impression: Atypical chest pain Disposition: HOME SELF-CARE Condition: Fair Instructions (If sedation given, give patient instructions): Chest Pain (ED) Is patient prescribed a controlled substance at d/c from ED?: No Referrals: Ed Martinez MD [Primary Care Provider] - 1-2 days Time of Disposition: 13:51
[2024-01-22] MEDS: HYDROmorphone 0.5 MG/0.5 ML SYRINGE IVP STA (10:51)
[2024-01-22 11:12] LABS: Basophils % (A) 0 %; Eosinophils % (A) 0 %; HCT 53.3 % (34.0-46.0); HGB 17.6 gm/dL (11.4-16.0); Lymphocytes # (A) 1.9 k/uL (1.0-4.8); Lymphocytes % (A) 23 %; MCHC 32.9 g/dL (31.0-37.0); MCV 94.1 fL (80.0-100.0); Mean Platelet Volume 11.6; Monocytes # (A) 0.4 k/uL (0-1.0); Monocytes % (A) 6 %; Neutrophils # (A) 5.5 k/uL (1.3-7.7); Neutrophils % (A) 68 %; Platelet Count 163 k/uL (150-450); RBC 5.67 m/uL (3.80-5.40); RDW 13.1 % (11.5-15.5); WBC 8.1 k/uL (3.8-10.6)
--- NOTE | 2024-01-22 11:21 | XR ---
EXAMINATION TYPE: XR chest 2V DATE OF EXAM: 01/22/2024 COMPARISON: 04/09/2019, 08/14/2019 CLINICAL INDICATION: Female, 58 years old with history of Chest Pain; , TECHNIQUE: XR chest 2V views of the chest. FINDINGS: The lungs are clear and there is no pneumothorax, pleural effusion, or focal pneumonia. Heart size normal and no overt failure. Osseous structures demonstrate hypertrophic and degenerative changes of the spine. Atherosclerotic change aorta. Surgical clips overlying the left breast. Tiny calcified nod ules noted by previous CT scan not as well seen by standard x-ray. Mild emphysematous changes. Vague density in the left mid lung adjacent to the left cardiac border may be related to the chest lead. IMPRESSION: 1. No acute process. 2. Vague nodule in the left midlung. Recommend short-term follow-up CT chest. [facility], , 01/22/2024 11:19 AM
[2024-01-22 11:25] LABS: INR 0.9 (<1.2); Partial Thromboplastin Time 25.8 sec (22.0-30.0); Prothrombin Time 10.4 sec (10.0-12.5)
[2024-01-22 11:27] LABS: ALT 41 U/L (4-34); AST 29 U/L (14-36); African American GFR (CKD) >90 (>60 ml/min/1.73 sqM); Albumin 4.6 g/dL (3.5-5.0); Alkaline Phosphatase 80 U/L (38-126); Anion Gap 5 mmol/L; Blood Urea Nitrogen 18 mg/dL (7-17); Calcium 9.6 mg/dL (8.4-10.2); Carbon Dioxide 32 mmol/L (22-30); Chloride 100 mmol/L (98-107); Glucose 123 mg/dL (74-99); Lipase 62 U/L (23-300); Magnesium 2.3 mg/dL (1.6-2.3); Non-African American GFR(CKD) >90 (>60 ml/min/1.73 sqM); Potassium 4.3 mmol/L (3.5-5.1); Sodium 137 mmol/L (137-145); Total Bilirubin 0.7 mg/dL (0.2-1.3); Total Protein 7.8 g/dL (6.3-8.2)
[2024-01-22 12:08] VITALS: PULSE 54; RESP 16
--- NOTE | 2024-01-22 13:10 | CT ---
EXAMINATION TYPE: CT angio thor/abd pel aorta CT DLP: 1590 mGycm, Automated exposure control for dose reduction was used. DATE OF EXAM: 01/22/2024 12:52 PM COMPARISON: CT low-dose lung 08/14/2023, chest radiograph 01/22/2024. CLINICAL INDICATION:Female, 58 years old with history of CP/Back pain/HTN; [facility], CHEST PAIN TECHNIQUE: Dissection protocol: Multiple axial CT images of the chest, abdomen, and pelvis were obtai bryan prior and to the administration of IV contrast. 3-D reformats and maximum intensity projection fo rmat were performed on a separate workstation. Then the abdomen was scanned after administration of 1 00 cc of Isovue 370 IV contrast. FINDINGS: ARTERIAL VASCULATURE: Mild to moderate atherosclerotic calcification of the aorta and its branches. T he aorta is normal in course and caliber. There is no evidence of aortic dissection, aneurysm or acut e aortic injury. Great arch vessels patent and normal in course and caliber. The bilateral renal seth lawanda are patent. There are 2 left renal arteries. The inferior larger left renal artery demonstrates a mild stenosis secondary to calcified and noncalcified plaque. Mild stenosis involving the right michael al artery secondary to calcified and noncalcified plaque. Celiac axis is widely patent. The ALEJANDRO is pa tent with mild narrowing at its origin secondary to calcified plaque. The ALEJANDRO is patent. The bilatera l common iliac arteries are patent with moderate calcified and noncalcified plaque. The bilateral int ernal and external iliac arteries are patent. The bilateral common femoral arteries are patent. PULMONARY ARTERIAL VASCULATURE: Normal caliber. No evidence of filling defect to suggest pulmonary em bolus. VENOUS SYSTEM: Unremarkable. Lungs/pleura: Mild centrilobular emphysematous changes. No pleural effusion or pneumothorax. No focal consolidation. Few stable subcentimeter pulmonary nodules. Right perihilar calcified granulomas are redemonstrated. No new suspicious pulmonary nodules. Secretions identified within the trachea. Heart: Within normal limits. No pericardial effusion. Aortic valvular calcifications. Mediastinum: No gross evidence of adenopathy. Lower Neck: Partial visualization of subcentimeter hypodense nodule within the right thyroid lobe. He terogenous appearance of the thyroid gland.. Soft tissues: Surgical clips identified within the left breast. Abdomen: Liver: Unremarkable. Gallbladder and Bile ducts: Unremarkable. Pancreas: Unremarkable. Spleen: Unremarkable. Adrenal glands: Unremarkable. Kidneys and Ureters: Unremarkable. No hydronephrosis. Stomach and Bowel: Unremarkable. The appendix is unremarkable. No evidence of bowel obstruction. Peritoneum: No evidence of pneumoperitoneum, free fluid, or adenopathy. Bladder: Unremarkable. Reproductive: Uterus is surgically absent. Abdominal wall/soft tissues: Unremarkable. Musculoskeletal: The osseous structures appear intact. IMPRESSION: 1. No evidence for aortic dissection or acute process. 2. Mild to moderate atherosclerotic plaque of the aorta and its branches. 3. Secretions within the trachea. 4. Mild COPD changes. 5. Stable small pulmonary nodules. No new or enlarging pulmonary nodules. [facility], , 01/22/2024 1:08 PM
[2024-01-22 14:03] VITALS: BP 159/75
== END 2024-01-22 14:08 | disposition home or self-care (01) ==
LOC: EC 10:07
DX: R07.89 Other chest pain (principal); I10 Essential (primary) hypertension; F17.200 Nicotine dependence, unspecified, uncomplicated
CPT/HCPCS: 36415; 93005; 80053; 83690; 83735; 84484; 85025; 85610; 85730; 71046; 71275; 74174; 99285; 96374; J1171; Q9967

== ENCOUNTER → 2024-09-07 | Outpatient (CLI) | payer MEDICARE, OTHER ==
--- NOTE | 2024-09-07 15:25 | MM ---
Reason for Exam: Screening (asymptomatic). Last mammogram was performed 1 year(s) and 1 month(s) ago. Patient History: Menarche at age 14. First Full-Term at age 19. Hysterectomy at age 23. Postmenopausal. 06/28/2016, Benign Core Biopsy on the left side. Maternal cousin had breast cancer, age 47. Maternal cousin had breast cancer, age 55. Risk Values: Roxanne 5 year model risk: 1.1%. NCI Lifetime model risk: 6.6%. Prior Study Comparison: 02/14/2022 Left MG 3D work up w/cad [facility], [facility]. 02/12/2023 Bilateral MG 3D diag mammo w/cad [facility], [facility]. 08/14/2023 Bilateral MG 3D diag mammo w/cad [facility], [facility]. Tissue Density: The breasts are heterogeneously dense, which may obscure small masses. Findings: Analyzed By CAD. Left breast biopsy clip. Right breast: There is no suspicious group of microcalcifications or new suspicious mass. Benign-appearing calcifications right breast. Left breast: There is no suspicious group of microcalcifications or new suspicious mass. Benign-appearing calcifications right breast. Overall Assessment: Benign, BI-RAD 2 Management: Screening Mammogram of both breasts in [address] [facility] will attempt to contact patient to return for supplemental views and ultrasound if indicated. Patient should continue monthly self-breast exams. A clinical breast exam by your physician is recommended on an annual basis. This exam should not preclude additional follow-up of suspicious palpable abnormalities. Note on Roxanne scores and lifetime risk: 1. A Roxanne score greater than 3% is considered moderate risk. If this is the case, consider specialist referral to assess eligibility for a risk reducing agent. 2. If overall lifetime risk for the development of breast cancer is 20% or higher, the patient may qualify for future screening with alternating mammogram and breast MRI. [facility], , 09/07/2024 3:22 PM. Electronically signed and approved by: Rohan Hendricks DO
--- NOTE | 2024-09-08 13:27 | BD ---
EXAMINATION TYPE: Axial Bone Density DATE OF EXAM: 09/07/2024 CLINICAL HISTORY: 59 years old Female. ICD-10 CODE: Z78.0 POST MENOPAUSAL WITHOUT HRT , Additional H istory: Height: 5 ft 5 in Weight: 197 FRAX RISK QUESTIONS: Alcohol (3 or more units per day): no Family History (Parent hip fracture): no Glucocorticoids (More than 3mos): no (Ex: prednisone, prednisolone, methylprednisolone, dexamethasone, and hydrocortisone). History of Fracture in Adulthood: no Secondary Osteoporosis: 1. Type 1 Diabetes: no 2. Hyperthyroidism: no 3. Menopause before 45: yes 4. Malnutrition: no 5. Chronic liver disease: no Rheumatoid Arthritis: yes Current Tobacco Use: yes RISK FACTORS HISTORY OF: Surgery to Spine/Hip(right/left)/Wrist (right/left): rt wrist When: 6-7 years ago MEDICATIONS: Thyroid Medications: no Osteoporosis Medications: none EXAM MEASUREMENTS: Bone mineral densitometry was performed using the ProNoxis System. Bone mineral density as measured about the Lumbar spine is: ----- L1-L4(G/cm2): 1.216 T Score Values are as follows: ----- L1: 0.9 ----- L2: 0.3 ----- L3: 0.2 ----- L4: -0.2 ----- L1-L4: 0.3 Z Score Values are as follows: ----- L1: 1.2 ----- L2: 0.5 ----- L3: 0.4 ----- L4: 0.0 ----- L1-L4: 0.5 Bone mineral density has: decreased -6.7 % since study of: 2017 Bone mineral density about the R hip (g/cm2): 0.967 Bone mineral density about the L hip (g/cm2): 0.997 T Score values are as follows: -----R Neck: -0.5 -----L Neck: -0.3 -----R Total: 1.0 -----L Total: 1.4 Z Score values are as follows: -----R Neck: 0.1 -----L Neck: 0.3 -----R Total: 1.2 -----L Total: 1.6 Bone mineral density has: decreased -5.0 % since study of: 2017 FRAX%s: The graph provided illustrates a 5.7 % chance for a major osteoporotic fx and a 0.3 % chance for the hips probability for fx in 10 years time. IMPRESSION: Normal (Values between +1 and -1 indicate normal bone mass). Consider repeating this study in 5 year s or sooner if there is some new clinical indication. NOTE: T-SCORE=SD OF THE YOUNG ADULT MEAN. [facility], , 09/08/2024 1:24 PM
== END | disposition home or self-care (01) ==
LOC: RADMAMWWP 14:42
PROVIDERS: ATTEND Family Medicine
DX: Z12.31 Encounter for screening mammogram for malignant neoplasm of breast (principal); R92.333 Mammographic heterogeneous density, bilateral breasts; Z78.0 Asymptomatic menopausal state; Z80.3 Family history of malignant neoplasm of breast
CPT/HCPCS: 77063; 77067; 77080